=== PATIENT | female | born 1960 | race African-American/Black ===

== ENCOUNTER → 2016-11-28 | Outpatient (CLI) | payer MEDICARE, OTHER ==
--- NOTE | 2016-11-30 08:29 | MM ---
Reason for exam: screening (asymptomatic). Last mammogram was performed 1 year and 1 month ago. History: Patient is postmenopausal and had first child at age 46. Family history of premenopausal breast cancer in mother at age 40. Physical Findings: A clinical breast exam by your physician is recommended on an annual basis and results should be correlated with mammographic findings. MG 3D Screening Mammo W/Cad Bilateral CC and MLO view(s) were taken. XCCL view(s) were taken of the right breast. Prior study comparison: November 02, 2015, bilateral MG 3d screening mammo w/cad. July 16, 2014, bilateral MG screening mammo w CAD. July 15, 2013, bilateral digital screening mammo w/CAD. There are scattered fibroglandular densities. No significant changes when compared with prior studies. ASSESSMENT: Negative, BI-RAD 1 RECOMMENDATION: Routine screening mammogram of both breasts in 1 year.
== END | disposition home or self-care (01) ==
LOC: RADMAMWWP 16:02
PROVIDERS: ATTEND Family Medicine
DX: Z12.31 Encounter for screening mammogram for malignant neoplasm of breast (principal)
CPT/HCPCS: 77063; G0202

== ENCOUNTER → 2016-12-17 | Outpatient (CLI) | payer MEDICARE, OTHER ==
[2016-12-17 11:13] LABS: Cholesterol 179 mg/dL (<200); HDL Cholesterol 65 mg/dL (40-60); Triglycerides 79 mg/dL (<150)
== END | disposition home or self-care (01) ==
LOC: LABWHC1 09:53
PROVIDERS: ATTEND Psychiatry & Neurology Psychiatry
DX: Z51.81 Encounter for therapeutic drug level monitoring (principal); Z79.899 Other long term (current) drug therapy
CPT/HCPCS: 36415; 80061

== ENCOUNTER → 2017-01-07 | Outpatient (CLI) | payer MEDICARE, OTHER ==
[2017-01-07 13:59] LABS: Basophils % (A) 1 %; CH 28.3; CHCM 32.6; Eosinophils # (A) 0.2 k/uL (0-0.7); Eosinophils % (A) 3 %; HCT 39.1 % (34.0-46.0); HDW 2.31; HGB 12.6 gm/dL (11.4-16.0); Luc # (Auto) 0.16; Luc % (Auto) 2; Lymphocytes # (A) 1.8 k/uL (1.0-4.8); Lymphocytes % (A) 24 %; MCH 28.2 pg (25.0-35.0); MCHC 32.3 g/dL (31.0-37.0); MCV 87.1 fL (80.0-100.0); Mean Platelet Volume 7.7; Monocytes # (A) 0.5 k/uL (0-1.0); Monocytes % (A) 7 %; Neutrophils # (A) 4.8 k/uL (1.3-7.7); Neutrophils % (A) 64 %; RBC 4.49 m/uL (3.80-5.40); WBC 7.5 k/uL (3.8-10.6); WBC (Perox) 7.97
[2017-01-07 14:21] LABS: Hemoglobin A1C 7.8 % (4.2-6.1)
[2017-01-07 14:30] LABS: ALT 37 U/L (9-52); AST 23 U/L (14-36); Alkaline Phosphatase 100 U/L (38-126); Anion Gap 11 mmol/L; Blood Urea Nitrogen 14 mg/dL (7-17); C Reactive Protein 7.3 mg/L (<10.0); Calcium 10.1 mg/dL (8.4-10.2); Carbon Dioxide 28 mmol/L (22-30); Chloride 103 mmol/L (98-107); Glucose 206 mg/dL (74-99); Non-African American GFR(MDRD) >60 (>60 ml/min/1.73 sqM); Potassium 4.4 mmol/L (3.5-5.1); Sodium 142 mmol/L (137-145); Total Bilirubin 0.4 mg/dL (0.2-1.3); Total Protein 6.6 g/dL (6.3-8.2)
[2017-01-07 14:34] LABS: Prealbumin 28 mg/dL (18-36)
[2017-01-07 15:27] LABS: Erythrocyte Sedimentation Rate 8 mm/hr (0-20)
== END ==
LOC: LABWHC1 12:28
PROVIDERS: ATTEND Internal Medicine Infectious Disease
DX: E11.621 Type 2 diabetes mellitus with foot ulcer (principal); L97.509 Non-pressure chronic ulcer of other part of unspecified foot with unspecified severity
CPT/HCPCS: 36415; 80053; 83036; 84134; 85025; 85652; 86140

== ENCOUNTER → 2017-03-04 | Outpatient (CLI) | payer MEDICARE, OTHER ==
[2017-03-04 14:17] VITALS: TEMP 97.3; BMI 35.9
[2017-03-04 14:46] LABS: EKG EKG PERFORMED
--- NOTE | 2017-03-04 14:48 | P.HPBAR ---
Bariatric H&P - History & Physicial H&P Date: 03/04/17 History & Physicial: Visit/CC: sleeve consult Patient initial contact: Initial weight: 113.534 kg Initial weight in pounds: 250.30 Height: 5 ft 10 in Initial BMI: 35.9 Last weight: Current weight: 113.534 kg Current weight in pounds: 250.30 Current BMI: 35.9 [place] body weight (based on NIH guidelines): 68.039 kg Excess body weight loss: 0.0% The patient is a 56 year-old F who presents for Bariatric Assessment. This is a 56-year-old female who presents today for bariatric consultation. Patient wishes to undergo sleeve gastrectomy. Patient has several comorbidities and is seeing Dr. Bradley for this. The patient states that she has had long-term problems obesity. Review of Systems Constitutional: Reports as per HPI Past Medical History Past Medical History: Diabetes Mellitus, Skin Disorder Additional Past Medical History / Comment(s): wound lt great toe, and rt arm near elbow History of Any Multi-Drug Resistant Organisms: VRE Year Discovered:: 05/30/16 MDRO Source:: left toe Past Surgical History: No Surgical Hx Reported Additional Past Surgical History / Comment(s): lt foot surgery Past Anesthesia/Blood Transfusion Reactions: No Reported Reaction Past Psychological History: Bipolar, Schizophrenia Smoking Status: Never smoker Past Alcohol Use History: None Reported Past Drug Use History: None Reported - Past Family History Mother Family Medical History: Cancer Additional Family Medical History / Comment(s): breast Sister(s) Family Medical History: Cancer Additional Family Medical History / Comment(s): kidney and liver Surgical - Exam Vital Signs Temp 97.3 F L 03/04/17 14:02 - General well developed, well nourished, no distress - Eyes PERRL - ENT normal pinna - Neck no masses - Respiratory normal expansion - Cardiovascular Rhythm: regular - Abdomen Abdomen: soft, non tender Bariatric Assessment & Plan Plan: Morbid obesity with BMI 36. The patient wished undergo sleeve gastrectomy. I went over the risks and benefits of procedure and discussed with the risk of possible staple line disruption bleeding or perforation. The patient will undergo EGD. She is scheduled see Dr. Bradley for a letter of medical necessity. She will arrange her psychologic consult. Bariatric Checklist Checklist: Plan: Checklist: EGD: 1. Hiatal hernia: 2. H. Pylori: HgbA1c: Vitamin D: Smoking: Never smoker Primary care physician referral: disha Psychiatry clearance: Cardiology clearance: Sleep study: Diet journal: VTE risk score: VTE risk level: Rehab needs at discharge:
[2017-03-04 15:17] LABS: CH 27.7; CHCM 32.5; HCT 38.4 % (34.0-46.0); HDW 2.23; HGB 12.7 gm/dL (11.4-16.0); MCH 28.3 pg (25.0-35.0); MCHC 33.1 g/dL (31.0-37.0); MCV 85.4 fL (80.0-100.0); Mean Platelet Volume 7.1; RDW 12.7 % (11.5-15.5); WBC 7.1 k/uL (3.8-10.6)
[2017-03-04 15:23] LABS: ALT 35 U/L (9-52); AST 21 U/L (14-36); Alkaline Phosphatase 100 U/L (38-126); Anion Gap 8 mmol/L; Blood Urea Nitrogen 17 mg/dL (7-17); Carbon Dioxide 31 mmol/L (22-30); Chloride 104 mmol/L (98-107); Glucose 87 mg/dL (74-99); Non-African American GFR(MDRD) >60 (>60 ml/min/1.73 sqM); Potassium 4.4 mmol/L (3.5-5.1); Sodium 143 mmol/L (137-145); Total Bilirubin 0.6 mg/dL (0.2-1.3); Total Protein 6.4 g/dL (6.3-8.2)
[2017-03-04 18:27] VITALS: BP 121/71; PULSE 72; RESP 14
[2017-03-04 22:25] LABS: Hemoglobin A1C 7.7 % (4.2-6.1)
== END | disposition home or self-care (01) ==
LOC: BARWHC3 12:56
PROVIDERS: ATTEND Surgery
DX: Z48.815 Encounter for surgical aftercare following surgery on the digestive system (principal); E66.01 Morbid (severe) obesity due to excess calories; Z68.36 Body mass index [BMI] 36.0-36.9, adult; Z98.84 Bariatric surgery status
CPT/HCPCS: 84425; 80053; 83036; 82746; 85027; 82306; 93005; G0463; 99201

== ENCOUNTER → 2017-03-07 | Outpatient (CLI) | payer MEDICARE, OTHER ==
--- NOTE | 2017-03-08 06:56 | MR ---
EXAMINATION TYPE: MR foot LT wo/w con DATE OF EXAM: 03/07/2017 6:00 PM COMPARISON: CT left foot June 06, 2016. HISTORY: Non healing wound x 3 months left foot plantar mid hind foot CONTRAST: Standard multiplanar, multisequence MRI departmental protocol utilizing 20 mL intravenous MultiHance gadolinium contrast. FINDINGS: There is pes planus deformity. There is marked artifact hindfoot and midfoot from extensive metallic hardware for desired arthrodesis, this causes adjacent streak artifact making evaluation wong boptimal. There is loss of normal subcutaneous fat in the hindfoot inferior to the mid calcaneus seen best on s agittal image 12 where there is heterogeneous increased T2 signal and postcontrast enhancement suspic ious for focal cellulitis at this level. Fat saturation images are suboptimal due to artifact from me tallic hardware. There is no convincing evidence of abnormal bone marrow signal or edema at this leve l. No abnormal osseous enhancement is present. There is marked ankylosis with bone reformation and joint space loss throughout the hindfoot and mid foot structures. Some flexion in the toes is present. No worrisome focal fluid collection or abscess is seen. IMPRESSION: Suboptimal study without convincing MRI evidence for acute osteomyelitis. Skin changes suggesting act blayne cellulitis noted.
== END | disposition home or self-care (01) ==
LOC: RADMRIMAIN 16:12
PROVIDERS: ATTEND Internal Medicine Infectious Disease
DX: M86.172 Other acute osteomyelitis, left ankle and foot (principal)
CPT/HCPCS: 73720; A9577

== ENCOUNTER 2017-03-26 07:12 | Day surgery (SDC) | payer MEDICARE, OTHER ==
[2017-03-21 13:47] VITALS: BMI 35.9
--- NOTE | 2017-03-25 15:27 | P.GSHP ---
History of Present Illness H&P Date: 03/26/17 Chief Complaint: GERD This a 56-year-old female referred from Dr. Bradley. Patient presents today for EGD. She's had issues with GERD. - Constitutional Constitutional: Reports as per HPI Past Medical History Past Medical History: Diabetes Mellitus, Skin Disorder Additional Past Medical History / Comment(s): wound lt great toe, and rt arm near elbow History of Any Multi-Drug Resistant Organisms: VRE Date of last positivie culture/infection: 05/30/16 MDRO Source:: left toe Past Surgical History: No Surgical Hx Reported Additional Past Surgical History / Comment(s): lt foot surgery Past Anesthesia/Blood Transfusion Reactions: No Reported Reaction Past Psychological History: Bipolar, Schizophrenia Smoking Status: Never smoker Past Alcohol Use History: None Reported Past Drug Use History: None Reported - Past Family History Mother Family Medical History: Cancer Additional Family Medical History / Comment(s): breast Sister(s) Family Medical History: Cancer Additional Family Medical History / Comment(s): kidney and liver Medications and Allergies Home Medications Medication Instructions Recorded Confirmed Type ARIPiprazole [ARIPiprazole] 30 mg PO DAILY 04/10/16 03/25/17 History Albuterol Sulfate [Proair Hfa] 2 puff INHALATION RT-Q6H PRN 04/10/16 03/25/17 History Budesonide-Formot 160-4.5 Mcg 2 puff INHALATION RT-BID 04/10/16 03/25/17 History [Symbicort 160-4.5 Mcg Inhaler] Cholecalciferol [Vitamin D3] 5,000 unit PO DAILY 04/10/16 03/25/17 History Diphenoxylate HCl/Atropine 1 tab PO QID PRN 04/10/16 03/25/17 History [Lomotil] Gabapentin [Gabapentin] 600 mg PO TID 04/10/16 03/25/17 History Hydrocodone/Acetaminophen 1 tab PO Q6H PRN 04/10/16 03/25/17 History [Hydrocodon-Acetaminophen 5-325] Insulin Glargine,Hum.rec.anlog 26 unit SQ HS 04/10/16 03/25/17 History [Lantus Solostar] Losartan Potassium [Losartan 25 mg PO DAILY 04/10/16 03/25/17 History Potassium] Orphenadrine [Norflex] 100 mg PO BID 04/10/16 03/25/17 History Perphenazine [Perphenazine] 2 mg PO HS 04/10/16 03/25/17 History buPROPion HCL [Bupropion HCl Sr] 200 mg PO BID 04/10/16 03/25/17 History lamoTRIgine [lamoTRIgine] 150 mg PO BID 04/10/16 03/25/17 History INSULIN LISPRO (HumaLOG) [HumaLOG] 12 units SQ AC-TID 01/07/17 03/25/17 History Pregabalin [Lyrica] 100 mg PO BID 02/11/17 03/25/17 History Allergies Allergy/AdvReac Type Severity Reaction Status Date / Time No Known Allergies Allergy Verified 03/25/17 10:55 Surgical - Exam - General well developed, no distress - Eyes PERRL, normal ocular movement, no icteric - ENT normal pinna - Neck no masses - Respiratory normal expansion - Cardiovascular Rhythm: regular - Abdomen Abdomen: soft, non tender Assessment and Plan Plan: GERD. We'll perform EGD.
[~2017-03-26 07:12] MED LIST: DEXAMETHASONE SOD PHOSPHATE 10 MG/ML 1 ML VIAL IV ONE; HYDROmorphone 1 MG/ML 1 ML SYRINGE IVP PRN; LACTATED RINGERS 1,000 ML IV SCH; ONDANSETRON 4 MG/2 ML VIAL IVP ONE
[2017-03-26] MEDS ORDERED: LACTATED RINGERS 1,000 ML IV ONE (07:24)
[2017-03-26 07:31] VITALS: TEMP 98.6
[2017-03-26 07:42] LABS: Glucose,Whole Blood 200 mg/dL (75-99)
[2017-03-26] MEDS ORDERED: LIDOCAINE 1% INJ 10MG/ML (20 ML MDV) ONE (07:45)
[2017-03-26] MEDS ORDERED: PROPOFOL 10 MG/ML 20 ML VIAL IV ONE (07:45)
--- NOTE | 2017-03-26 07:56 | P.OP ---
Date of Procedure: 03/26/17 Preoperative Diagnosis: GERD Postoperative Diagnosis: Antral gastritis Small hiatal hernia Mild esophagitis Procedure(s) Performed: EGD Implants: Anesthesia: MAC Surgeon: Xavier Chan Pathology: other (Antrum, esophagus) Condition: stable Disposition: PACU Indications for Procedure: Operative Findings: Description of Procedure: The patient's placed on the endoscopy table in the lateral position. She received IV sedation. The gastroscope some placed oropharynx and passed into the esophagus and into the stomach. Scope was then placed through the pylorus. First and second portion of the duodenum appeared normal. Scope was then brought back the antrum and this appeared mildly inflamed. A biopsies was performed. The scope was unretroflexed and remainder of the stomach appeared normal. There was a small hiatal hernia. The GE junction was at 40 cm. The distal esophagus appeared mildly inflamed a biopsies performed. The proximal esophagus. Normal. Scope was withdrawn for patient.
[2017-03-26 09:17] VITALS: RESP 18
[2017-03-26 09:20] VITALS: BP 126/74; PULSE 80
== END 2017-03-26 09:15 | disposition home or self-care (01) ==
LOC: ORWHC2ENDO 07:12
PROVIDERS: ATTEND Surgery
DX: K29.50 Unspecified chronic gastritis without bleeding (principal); K44.9 Diaphragmatic hernia without obstruction or gangrene; J45.909 Unspecified asthma, uncomplicated; E11.9 Type 2 diabetes mellitus without complications; Z79.4 Long term (current) use of insulin; F31.9 Bipolar disorder, unspecified; F20.9 Schizophrenia, unspecified; E66.9 Obesity, unspecified; Z68.35 Body mass index [BMI] 35.0-35.9, adult; Z85.3 Personal history of malignant neoplasm of breast; Z79.51 Long term (current) use of inhaled steroids; Z79.899 Other long term (current) drug therapy
CPT/HCPCS: 88305; 88342; 43239; J2001; J2704

== ENCOUNTER → 2017-04-01 | Outpatient (CLI) | payer MEDICARE, OTHER ==
[2017-04-01 14:59] VITALS: BP 116/72; PULSE 82; RESP 14; TEMP 97.6; BMI 35.6
--- NOTE | 2017-04-01 16:24 | P.HPBAR ---
Bariatric H&P - History & Physicial H&P Date: 04/01/17 History & Physicial: Visit/CC: sleeve prospective Patient initial contact: Initial weight: 113.534 kg Initial weight in pounds: 250.30 Height: 5 ft 10 in Initial BMI: 35.9 Last weight: Current weight: 112.627 kg Current weight in pounds: 248.30 Current BMI: 35.6 [place] body weight (based on NIH guidelines): 68.039 kg Excess body weight loss: 1.9% The patient is a 56 year-old F who presents for Bariatric Assessment. Patient presents today for presurgical consultation. She underwent recent EGD. Patient 's found have evidence of a small hiatal hernia with some mild esophagitis. Patient still is pending to have her psychiatric evaluation done. We are still awaiting her R medical necessity from Dr. Bradley. Past Medical History Past Medical History: Asthma, Diabetes Mellitus, Skin Disorder Additional Past Medical History / Comment(s): wound lt great toe, and rt arm near elbow History of Any Multi-Drug Resistant Organisms: VRE Year Discovered:: 05/30/16 MDRO Source:: left toe Past Surgical History: No Surgical Hx Reported Additional Past Surgical History / Comment(s): lt foot surgery Past Anesthesia/Blood Transfusion Reactions: No Reported Reaction Past Psychological History: Bipolar, Schizophrenia Smoking Status: Never smoker Past Alcohol Use History: None Reported Past Drug Use History: None Reported - Past Family History Mother Family Medical History: Cancer Additional Family Medical History / Comment(s): breast Sister(s) Family Medical History: Cancer Additional Family Medical History / Comment(s): kidney and liver Surgical - Exam Vital Signs Temp Pulse Resp BP 97.6 F 82 14 116/72 04/01/17 14:55 04/01/17 14:55 04/01/17 14:55 04/01/17 14:55 - General well developed, no distress - Eyes PERRL - ENT normal pinna - Neck no masses - Respiratory normal expansion - Cardiovascular Rhythm: regular - Abdomen Abdomen: soft, non tender, tender Bariatric Assessment & Plan Plan: A lengthy discussion with patient regarding sleeve gastrectomy. Over the risks and benefits of procedure again. I discussed with her the risk of possible gastric staple line disruption. Patient will follow-up in one month. She'll be off pressure surgery once her paperwork is completed. Bariatric Checklist Checklist: Plan: Checklist: EGD: 1. Hiatal hernia: 2. H. Pylori: HgbA1c: Vitamin D: Smoking: Never smoker Primary care physician referral: disha Psychiatry clearance: Cardiology clearance: Sleep study: Diet journal: VTE risk score: VTE risk level: Rehab needs at discharge:
== END | disposition home or self-care (01) ==
LOC: BARWHC3 14:43
PROVIDERS: ATTEND Surgery
DX: Z01.818 Encounter for other preprocedural examination (principal); E11.9 Type 2 diabetes mellitus without complications
CPT/HCPCS: 99211

== ENCOUNTER → 2017-04-18 | Outpatient (CLI) | payer MEDICARE, OTHER ==
--- NOTE | 2017-04-18 19:16 | CONS ---
DATE OF CONSULTATION: 04/18/2017 56-year-old lady who has been evaluated in the Sleep Center for significant excessive daytime sleepiness. CONSULTATION/NEW PATIENT EVALUATION HISTORY OF PRESENT ILLNESS/SLEEP-WAKE EVALUATION: SLEEP SCHEDULE: Patient sleep on working days is from around 9:30 or 11:00 p.m. until 4:00 a.m. and on weekends when she is not working from 9:30 to 11:00 p.m. until 7:00 a.m. FALLING ASLEEP: No problem with falling asleep. She has a TV set in bedroom. DURING SLEEP: She wakes up from sleep with heartburn and at night during the day. DURING THE DAY/WAKE STATE: During the day, she feels significantly sleepy, [place] Sleepiness Scale significantly increased to 18. Patient denied snoring. She does not remember dreams during the night or during the day. No history of cataplexy or sleep paralysis. During the day she has problems with, concentration, depression, and anxiety, falling asleep during the day. PAST MEDICAL HISTORY: Positive for diabetes mellitus, asthma, depression, schizophrenia, knee problem, back pain, right arm, arthritis. PAST SURGICAL HISTORY: Left foot surgery. MEDICATIONS: 1. Abilify. 2. ( ) sulfate with ( ). 3. Hydrochloride. 4. Bupropion. 5. Gabapentin. 6. Humalog. 7. Hydrocodone. 8. Lamictal. 9. Lantus. 10. Losartan. 11. Orphenadrine citrate. 12. ( ). 13. Pro-Air. 14. Symbicort. 15. Breo. 16. Vitamin D supplement. SOCIAL HISTORY: Negative for smoking or using alcohol. REVIEW OF SYSTEM: Significant excessive daytime sleepiness. No fevers. No double vision. No recent chest pain. No shortness of breath. No abdominal pain. No bleeding episodes. No blood in urine. No seizure episodes. FAMILY HISTORY: Hypertension, stroke, arthritis, asthma, bronchitis, headaches, acid reflux, diabetes, mental illness. PHYSICAL EXAMINATION: lady without distress. VITAL SIGNS: BP 126/72, HR 70, RR 16. Height 5 feet 9 inches. Weight 245, BMI 36.1. Neck 15 inches in circumference. Temperature 97.7, oxygen saturation at room air 94%. Oropharynx extremely low position of soft palate. Mallampati IV. NECK: Supple. No JVD. Thyroid is not palpable. LUNGS: Clear to percussion and to auscultation. Good air exchange. No wheezing or rhonchi. HEART: S1, S2 regular. No murmurs, gallops or rubs. ABDOMEN: Obese. Soft and nontender. Bowel sounds are present. No organomegaly appreciated. EXTREMITIES: No clubbing or cyanosis. Swelling left ankle. WEB PRESSMAN: Awake, alert, and oriented x3. Cranial nerves 2 to 7 intact. There is no fasciculation or atrophy noted. No focal deficits observed. IMPRESSION: 1. Awakenings from sleep, extremely low position of soft palate, sleepiness, heartburn during sleep obstructive sleep apnea-hypopnea syndrome. 2. Obesity, body mass index of 36.2. 3. Patient presented with symptoms of significant excessive daytime sleepiness. [place] Sleepiness Scale is 18. Differential diagnosis should include hypersomnia. No history of cataplexy hypnogogical hallucinations or sleep paralysis. 4. Diabetes mellitus. 5. Asthma. 6. Depression. 7. Schizophrenia. 8. Knee problems. 9. Back pain. 10. Right arm, arthritis. PLAN: 1. Polysomnography for evaluation of patient's breathing during sleep. 2. CPAP/BiPAP titration if sleep study confirms obstructive sleep apnea-hypopnea syndrome. 3. Preferable position during sleep on the side. 4. No driving if patient feels any sleepiness. Patient is aware of civil and criminal liability for unsafe driving. 5. I will see patient for follow-up visit to explain results of the testing and following plan. 6. Multiple sleep latency test if sleep study will be negative for obstructive sleep apnea/hypopnea syndrome for objective evaluation patient's symptoms for significant excessive daytime sleepiness. Thank you very much for referring this patient for consultation. Sincerely, Jef Pichardo MD, PhD, FAASM. Diplomat of [place] [employer], Sleep Medicine Board by [employer] [facility] [place]
== END | disposition home or self-care (01) ==
LOC: SLEEP 14:15
PROVIDERS: ATTEND Internal Medicine
DX: G47.33 Obstructive sleep apnea (adult) (pediatric) (principal); E66.9 Obesity, unspecified; E11.9 Type 2 diabetes mellitus without complications; J45.909 Unspecified asthma, uncomplicated; F32.9 Major depressive disorder, single episode, unspecified; F20.9 Schizophrenia, unspecified; M54.9 Dorsalgia, unspecified; M13.88 Other specified arthritis, other site; Z68.36 Body mass index [BMI] 36.0-36.9, adult; Z79.899 Other long term (current) drug therapy
CPT/HCPCS: 99211

== ENCOUNTER → 2017-06-27 | Outpatient (CLI) | payer MEDICARE, OTHER ==
[2017-06-27 10:45] LABS: ALT 46 U/L (9-52); AST 27 U/L (14-36)
== END | disposition home or self-care (01) ==
LOC: LABWHC1 09:25
PROVIDERS: ATTEND Podiatrist Foot & Ankle Surgery
DX: K74.60 Unspecified cirrhosis of liver (principal)
CPT/HCPCS: 36415; 84450; 84460

== ENCOUNTER → 2017-07-25 | Outpatient (CLI) | payer MEDICARE, OTHER ==
--- NOTE | 2017-07-25 14:59 | PN ---
PROGRESS NOTE DATE OF SERVICE: 07/25/2017 A 56-year-old lady who has been followed in Sleep Center for treatment of obstructive sleep apnea-hypopnea syndrome. Patient had diagnostic sleep study and CPAP titration. During diagnostic sleep study, it was documented that she has 23.2 times per hour breathing problems with oxygen desaturation to 83.8%. During titration, her respiration was under control with a pressure of 12 cm of water. The patient started on treatment with CPAP and today she came for followup visit. I discussed results of the test with her. She brought her CPAP unit. CPAP pressure is 12 cm of water. I checked CPAP unit. Ramp is 20 minutes. Patient used equipment /30 nights and nights for more than 4 hours. Significant leak is documented by the reading from the machine is 67 L/minute, and this high AHI is 15 on the machine. [place] Sleepiness Scale today is 13. She feels significant sleepiness since she did not use her machine for the last night and she did not sleep last night at all according to her. MEDICATIONS: Abilify, Lamictal, , Wellbutrin, Atropine, sulfate, bupropion, gabapentin, Humalog, losartan, Lantus, Perphenazine, ProAir, Symbicort. PHYSICAL EXAM: Patient in no distress. BP in the range of 80/48, HR 70, RR 16, weight 233, temp 98.0, oxygen saturation from room air 95%. OROPHARYNX: Extremely low position of soft palate. She had bracelets on the left foot. IMPRESSION: 1. Obstructive sleep apnea-hypopnea syndrome, significant leak by the reading from the machine and patient's machine still has high apnea-hypopnea index. 2. Obesity. 3. Diabetes mellitus. 4. Asthma. 5. Depression. 6. History of schizophrenia.. 7. Knee problems. 8. Back pain. 9. Right arm arthritis. PLAN: 1. We will check to be sure that patient using correct chin-strap. 2. Will check the size of patient's mass to be sure that it is right size. 3. Continue to use CPAP equipment every night for the whole night. 4. Losing weight. 5. Sleep hygiene with regular time in bed for at least 8 hours[address] 6[address] Patient does not drive at the present time. Thank you very much for allowing me to participate in the management of your patient. Sincerely, Jef Pichardo MD, PhD, FAASM Diplomat of [employer] Sleep Medicine Board by [employer] Art Teacher [facility] [place] / SHANIA: [phone] /
== END | disposition home or self-care (01) ==
LOC: SLEEP 11:54
PROVIDERS: ATTEND Internal Medicine
DX: G47.33 Obstructive sleep apnea (adult) (pediatric) (principal); E66.9 Obesity, unspecified; E11.9 Type 2 diabetes mellitus without complications; J45.909 Unspecified asthma, uncomplicated; M54.9 Dorsalgia, unspecified

== ENCOUNTER → 2017-08-08 | Outpatient (CLI) | payer MEDICARE, OTHER ==
[2017-08-08 16:23] LABS: ALT 40 U/L (9-52); AST 27 U/L (14-36)
== END | disposition home or self-care (01) ==
LOC: LABWHC1 15:39
PROVIDERS: ATTEND Podiatrist Foot & Ankle Surgery
DX: K74.60 Unspecified cirrhosis of liver (principal)
CPT/HCPCS: 36415; 84450; 84460

== ENCOUNTER → 2017-10-31 | Outpatient (CLI) | payer MEDICARE, OTHER ==
--- NOTE | 2017-10-31 14:03 | PN ---
PROGRESS NOTE DATE OF SERVICE: 10/31/2017 A 57-year-old lady who has been followed in the Sleep Center for treatment of obstructive sleep apnea-hypopnea syndrome. Patient was started on treatment with CPAP and today she came for followup visit. I checked patient's CPAP unit, but it showed that she was not able to use it for at least 1 month. For the time frame of 3 months she used it 7 days, but less than 4 hours. Average usage 1.3 hours and with this usage she has significant leak. Patient explained that she has difficulties to put mask on and I checked her full-face mask and it was not connected properly. The head gear connected vice versa so I changed this connection for correct position. [place] Sleepiness Scale today is 6. MEDICATIONS: Abilify, Lamictal, Wellbutrin, Bupropion, gabapentin, Humalog, losartan, Lantus, Symbicort, ProAir. PHYSICAL EXAM: Patient in no distress. BP 131/82, HR 70, RR 16, weight 224, temp 96.7, oxygen saturation at room air 100%. OROPHARYNX: Extremely low position of soft palate. Neck Supple, no JVD. Thyroid is not palpable. LUNGS Clear to percussion and to auscultation. Good air exchange. No wheezing or rhonchi. HEART S1, S2 regular. No murmurs, gallops, or rubs. ABDOMEN Soft and nontender. Bowel sounds are present. No organomegaly appreciated. EXTREMITIES No clubbing or cyanosis. 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 Cranial nerves 2 to 7 intact. There is no fasciculation or atrophy. noted. No focal deficits observed. IMPRESSION: 1. Obstructive sleep apnea-hypopnea syndrome. Patient has difficulties to use CPAP equipment secondary to mask seating. She explained that it is difficult for her to put mask on, but connection of mask to head gear was not correct. 2. Diabetes mellitus. 3. Asthma. 4. Depression. 5. History of schizophrenia. 6. Knee problems. 7. Back problems. 8. Right arm arthritis. 9. Mild obesity. PLAN: 1. I adjusted head gear correctly to the mask. Patient will try to use her machine every night for the whole night. 2. Sleep hygiene with regular time in bed for at least 8 hours. 3. No driving if feeling any sleepiness. Thank you very much for allowing me to participate in the management of your patient. Sincerely, Jef Pichardo MD, PhD, FAASM Diplomat of [employer] Medicine [employer] Photographer [facility] [place] / SHANIA: [phone] /
== END ==
LOC: CANPRECLI → SLEEP 13:08
PROVIDERS: ATTEND Internal Medicine
DX: Z53.9 Procedure and treatment not carried out, unspecified reason (principal)

== ENCOUNTER → 2017-11-12 | Outpatient (CLI) | payer MEDICARE, OTHER ==
--- NOTE | 2017-11-12 15:39 | US ---
EXAMINATION TYPE: US thyroid st tissue head/neck DATE OF EXAM: 11/12/2017 COMPARISON: NONE CLINICAL HISTORY: E04.1 Thyroid nodule. GLAND SIZE: Right Lobe: 5.2 x 2.3 x 1.7 cm Overall Parenchyma: slightly heterogenous Left Lobe: 4.7 x 2.1 x 1.9 cm Overall Parenchyma: slightly heterogenous Isthmus Thickness: 0.6 cm NODULES RIGHT: # of nodules measured on right: 1 1. 0.5 X 0.4 x 0.3 cm hypoechoic solid nodule at the mid pole with well-defined margins. This nodu le is taller than wide and shows intranodular vascularity. Prior size: 0.6 x 0.3 x 0.5 cm LEFT: # of nodules measured on left: 2 1. 0.8 X 0.7 x 0.5 cm hypoechoic solid nodule at the mid pole with well-defined margins. This nodu le is taller than wide and shows intranodular vascularity. Prior size: 0.7 x 0.5 x 0.7 cm 2. 0.5 X 0.4 x 0.2 cm hypoechoic mixed nodule at the lower pole with irregular margins. This nodule is taller than wide and shows intranodular vascularity. Prior size: 0.4 x 0.2 x 0.4 cm 3. Previous third nodule not seen today during exam ISTHMUS: # of nodules measured in the isthmus: 1 1. 1.0 X 1.0 x 0.6 cm hypoechoic mixed nodule with well-defined margins. This nodule is taller malinda n wide and shows intranodular vascularity. Prior size: 1.0 x 0.5 x 1.0 cm Bilateral neck scanned, no evidence of lymphadenopathy. Bilateral lobes appear enlarged IMPRESSION: Subcentimeter left thyroid nodules and 1 cm isthmic thyroid nodule within a mildly enlarged thyroid g land do not meet size criteria for fine needle aspiration and therefore surveillance is recommended.
== END | disposition home or self-care (01) ==
LOC: RADUSWWP 14:37
PROVIDERS: ATTEND Otolaryngology
DX: E04.2 Nontoxic multinodular goiter (principal)
CPT/HCPCS: 76536

== ENCOUNTER → 2017-11-18 | Outpatient (CLI) | payer MEDICARE, OTHER ==
--- NOTE | 2017-11-19 10:30 | MM ---
Reason for exam: screening (asymptomatic). Last mammogram was performed 1 year ago. History: Patient is postmenopausal and had first child at age 46. Family history of premenopausal breast cancer in mother at age 40. Physical Findings: A clinical breast exam by your physician is recommended on an annual basis and results should be correlated with mammographic findings. MG 3D Screening Mammo W/Cad Bilateral CC and MLO view(s) were taken. Prior study comparison: November 28, 2016, bilateral MG 3d screening mammo w/cad. November 02, 2015, bilateral MG 3d screening mammo w/cad. There are scattered fibroglandular densities. Benign calcifications in the right breast. No significant changes when compared with prior studies. ASSESSMENT: Benign, BI-RAD 2 RECOMMENDATION: Routine screening mammogram of both breasts in 1 year.
== END | disposition home or self-care (01) ==
LOC: RADMAMWWP 11:02
PROVIDERS: ATTEND Family Medicine
DX: Z12.31 Encounter for screening mammogram for malignant neoplasm of breast (principal)
CPT/HCPCS: 77063; 77067

== ENCOUNTER → 2018-11-25 | Outpatient (CLI) | payer MEDICARE, OTHER | END | disposition home or self-care (01) | LOC: LABWHC1 14:18 | PROVIDERS: ATTEND Orthopaedic Surgery | DX: Z01.812 Encounter for preprocedural laboratory examination (principal) | CPT/HCPCS: 87070 ==

== ENCOUNTER → 2018-11-27 | Outpatient (CLI) | payer MEDICARE, OTHER ==
--- NOTE | 2018-11-29 14:38 | MM ---
Reason for exam: screening (asymptomatic). Last mammogram was performed 1 year ago. History: Patient is postmenopausal and had first child at age 46. Family history of premenopausal breast cancer in mother at age 40. MG 3D Screening Mammo W/Cad Bilateral CC and MLO view(s) were taken. Prior study comparison: November 18, 2017, bilateral MG 3d screening mammo w/cad. November 28, 2016, bilateral MG 3d screening mammo w/cad. The breast tissue is heterogeneously dense. This may lower the sensitivity of mammography. No discrete abnormality. No significant changes when compared with prior studies. ASSESSMENT: Negative, BI-RAD 1 RECOMMENDATION: Routine screening mammogram of both breasts in 1 year.
== END | disposition home or self-care (01) ==
LOC: RADMAMWWP 11:29
PROVIDERS: ATTEND Family Medicine
DX: Z12.31 Encounter for screening mammogram for malignant neoplasm of breast (principal)
CPT/HCPCS: 77063; 77067

== ENCOUNTER 2019-08-03 17:11 | Emergency (ER) | payer MEDICARE, OTHER ==
[2019-08-03 17:47] VITALS: TEMP 98.2
--- NOTE | 2019-08-03 20:03 | XR ---
EXAMINATION TYPE: XR foot complete LT DATE OF EXAM: 08/03/2019 COMPARISON: NONE HISTORY: Abscess TECHNIQUE: 3 views FINDINGS: There are numerous plates and screws fusing the mid foot on the medial aspect. There is fus ion of the subtalar joint. I see no fracture nor dislocation. There is pes planus deformity. IMPRESSION: Extensive fusion surgery. No evidence of osteomyelitis.
--- NOTE | 2019-08-03 20:15 | ED ---
General Adult HPI - General Chief complaint: Skin/Abscess/Foreign Body Stated complaint: diabetic/foot problem Time Seen by Provider: 08/03/19 19:18 Source: patient, RN notes reviewed Mode of arrival: ambulatory Limitations: no limitations - History of Present Illness Initial comments: 58-year-old female presents to the emergency department for a chief complaint of left foot problem. Patient states she noticed a green area on the bottom of the left foot last night. Patient states she has neuropathy so does not have any pain in this area. Patient states she had a fusion surgery several years ago for lateral deviation of the left foot. States she has not had any complaints of that sense. Patient does not go to wound care for any reason but does have a history of diabetes.Patient has no other complaints at this time including shortness of breath, chest pain, abdominal pain, nausea or vomiting, headache, or visual changes. - Related Data Home Medications Medication Instructions Recorded Confirmed Albuterol Sulfate [Proair Hfa] 2 puff INHALATION RT-Q6H PRN 04/10/16 08/03/19 Pregabalin [Lyrica] 100 mg PO BID 02/11/17 08/03/19 buPROPion HCL [Wellbutrin XL] 300 mg PO QAM 11/26/18 08/03/19 metFORMIN HCL [Glucophage] 500 mg PO BID-W/MEALS 11/26/18 08/03/19 Dulaglutide [Trulicity] 1.5 mg SQ ZAMBRANO 11/27/18 08/03/19 Insulin Glargine [Lantus] 6 unit SQ W/SUPPER 11/27/18 08/03/19 ARIPiprazole [Abilify] 30 mg PO HS 08/03/19 08/03/19 Hydrocodone/Acetaminophen [[place] 1 tab PO QID 08/03/19 08/03/19 5-325] Insulin Glargine [Lantus] 8 unit SQ HS 08/03/19 08/03/19 buPROPion HCL [Wellbutrin XL] 150 mg PO W/LUNCH 08/03/19 08/03/19 lamoTRIgine [LaMICtal] 150 mg PO BID 08/03/19 08/03/19 Previous Rx's Medication Instructions Recorded Cephalexin [Keflex] 500 mg PO Q6HR 10 Days #40 cap 08/03/19 Sulfamethox-Tmp 800-160Mg [Bactrim 1 tab PO Q12HR #20 tab 08/03/19 DS 800-160 mg] Allergies Allergy/AdvReac Type Severity Reaction Status Date / Time No Known Allergies Allergy Verified 08/03/19 19:49 Review of Systems ROS Statement: Those systems with pertinent positive or pertinent negative responses have been documented in the HPI. ROS Other: All systems not noted in ROS Statement are negative. Past Medical History Past Medical History: Asthma, Diabetes Mellitus, Skin Disorder Additional Past Medical History / Comment(s): wound lt great toe, and rt arm near elbow History of Any Multi-Drug Resistant Organisms: VRE Date of last positivie culture/infection: 05/30/16 MDRO Source:: left toe Past Surgical History: No Surgical Hx Reported, Orthopedic Surgery Additional Past Surgical History / Comment(s): lt foot surgery Past Anesthesia/Blood Transfusion Reactions: No Reported Reaction Past Psychological History: Bipolar, Schizophrenia Smoking Status: Never smoker Past Alcohol Use History: None Reported Past Drug Use History: None Reported - Past Family History Mother Family Medical History: Cancer Additional Family Medical History / Comment(s): breast Sister(s) Family Medical History: Cancer Additional Family Medical History / Comment(s): kidney and liver General Exam Limitations: no limitations General appearance: alert, in no apparent distress Head exam: Present: atraumatic, normocephalic, normal inspection Eye exam: Present: normal appearance, PERRL, EOMI. Absent: scleral icterus, conjunctival injection, periorbital swelling ENT exam: Present: normal exam, mucous membranes moist Neck exam: Present: normal inspection, full ROM. Absent: tenderness, meningismus, lymphadenopathy Respiratory exam: Present: normal lung sounds bilaterally. Absent: respiratory distress, wheezes, rales, rhonchi, stridor Cardiovascular Exam: Present: regular rate, normal rhythm, normal heart sounds. Absent: systolic murmur, diastolic murmur, rubs, gallop, clicks Extremities exam: Present: full ROM (Full range of motion of all digits in the left foot.), normal capillary refill (cap refill less than, DP pulse 2+ left lower extremity.), other (Patient has fluctuant area noted to left proximal first metatarsal. No erythema. no green areas on skin the patient does have some white discoloration over the abscess.) Course Vital Signs 08/03/19 17:42 Temperature 98.2 F Pulse Rate 93 Respiratory 18 Rate Blood Pressure 122/72 O2 Sat by Pulse 97 Oximetry Procedures - Incision & Drainage Consent Obtained: verbal consent Site: foot I&D Cleaning Method: Chloroprep I&D Drainage Obtained: Blood Medical Decision Making - Medical Decision Making 88-year-old female presents for possible ulcer on the bottom of the left foot. On exam patient does have what appears to be an ulcer versus an abscess. I did do a superficial incision with an 18-gauge needle, no purulent material expelled. X-ray was obtained which shows no evidence of osteomyelitis. There is extensive fusion surgery that was done years ago. Patient likely is a developing ulcer. However will be treated with antibiotics in case there is overlying infection. She will follow-up with her orthopedic doctor as well as given the wound care referral. She'll return if she has any worsening symptoms. Disposition Clinical Impression: Ulcer Disposition: HOME SELF-CARE Condition: Good Instructions (If sedation given, give patient instructions): Diabetic Foot Ulcers (ED) Additional Instructions: Please follow up with orthopedics in one to 2 days. you may also try to follow up with the wound center. Please return to the emergency department if you have any worsening symptoms. Prescriptions: Sulfamethox-Tmp 800-160Mg [Bactrim DS 800-160 mg] 1 tab PO Q12HR #20 tab Cephalexin [Keflex] 500 mg PO Q6HR 10 Days #40 cap Is patient prescribed a controlled substance at d/c from ED?: No Referrals: Fredrick Bradley MD [Primary Care Provider] - 1-2 days [facility] [[facility] - 1-2 days Time of Disposition: 21:30
[2019-08-03] MEDS ORDERED: CEPHALEXIN 500MG STARTER PACK 4 CAP BTL PO STA (21:34)
[2019-08-03 21:51] VITALS: BP 126/71; PULSE 89; RESP 16
== END 2019-08-03 21:51 | disposition home or self-care (01) ==
LOC: EC 17:11
DX: E11.621 Type 2 diabetes mellitus with foot ulcer (principal); L97.529 Non-pressure chronic ulcer of other part of left foot with unspecified severity; E11.40 Type 2 diabetes mellitus with diabetic neuropathy, unspecified; J45.909 Unspecified asthma, uncomplicated; F31.9 Bipolar disorder, unspecified; F20.9 Schizophrenia, unspecified; Z79.51 Long term (current) use of inhaled steroids; Z79.4 Long term (current) use of insulin; Z79.899 Other long term (current) drug therapy; Z98.890 Other specified postprocedural states
CPT/HCPCS: 10060; 99283

== ENCOUNTER → 2019-08-13 | Outpatient (CLI) | payer MEDICARE, OTHER ==
--- NOTE | 2019-08-13 14:53 | US ---
SIDE PERFORMED: LOWER EXTREMITY VENOUS INSUFFICIENCY CLINICAL HISTORY: L89.899 PRESSURE ULCER. Ulcer. SIDE PERFORMED: Bilateral. 1) Color flow is present and patency is documented in the following vessels. No DVT or SVT is noted . EIV Common Femoral Vein Deep Femoral Vein Femoral Vein Popliteal Vein Proximal Calf Veins Greater Saph Vein Upper Small Saph Vein 2) There is no venous reflux noted. IMPRESSION: No superficial or deep venous thrombosis within either lower extremity. No venous reflux seen.
== END | disposition home or self-care (01) ==
LOC: RADUSWWP 12:49
PROVIDERS: ATTEND Family Medicine
DX: E11.610 Type 2 diabetes mellitus with diabetic neuropathic arthropathy (principal); E11.621 Type 2 diabetes mellitus with foot ulcer; L97.509 Non-pressure chronic ulcer of other part of unspecified foot with unspecified severity; L89.899 Pressure ulcer of other site, unspecified stage; I96 Gangrene, not elsewhere classified; Z98.890 Other specified postprocedural states
CPT/HCPCS: 93922; 93970

== ENCOUNTER → 2019-10-23 | Outpatient (CLI) | payer MEDICARE, OTHER ==
--- NOTE | 2019-10-26 09:00 | XR ---
EXAMINATION TYPE: XR lumbar spine 2 or 3V DATE OF EXAM: 10/23/2019 CLINICAL HISTORY: pain TECHNIQUE: Three views of the lumbar spine are submitted. COMPARISON: None. FINDINGS: Grade 1 anterolisthesis L4 and L5 measuring 5 mm. Moderate degenerative narrowing at L3-4 L4-5 and L5 -S1. Lower lumbar facet joint arthropathy. Ventral spondylosis. No compression fractures identified. IMPRESSION: No acute fracture or dislocation is seen in the lumbar spine. ICD 10 NO FRACTURE, INITIAL EVALUATION
== END | disposition home or self-care (01) ==
LOC: RADXRMAIN 16:24
PROVIDERS: ATTEND Family Medicine
DX: M54.5 Low back pain (principal)
CPT/HCPCS: 72100

== ENCOUNTER → 2019-12-22 | Outpatient (CLI) | payer MEDICARE, OTHER ==
--- NOTE | 2019-12-22 10:22 | US ---
EXAMINATION TYPE: US thyroid st tissue head/neck DATE OF EXAM: 12/22/2019 COMPARISON: NONE CLINICAL HISTORY: E04.1 thyroid nodule. GLAND SIZE: Right Lobe: 5.9 x 1.9 x 2.1cm Overall Parenchyma: homogenous Left Lobe: 4.9 x 1.9 x 2.4cm Overall Parenchyma: homogeneous Isthmus Thickness: 1.0 cm NODULES RIGHT: # of nodules measured on right: 1 1. 0.8 X 0.6 x 0.7 cm hypoechoic mixed nodule at the mid pole with well-defined margins. This nodu le is wider than tall and shows no intranodular vascularity. Prior size: 0.5 x 0.4 x 0.3 cm LEFT: # of nodules measured on left: 2 1. 0.6 X 0.4 x 0.7 cm isoechoic solid nodule at the mid pole with well-defined margins. This nodul e is wider than tall and shows intranodular vascularity. Prior size: 0.8 x 0.7 x 0.5 cm 2. 0.4 X 0.3 x 0.4 cm hypoechoic solid nodule at the lower pole with well-defined margins. This nod ule is wider than tall and shows no intranodular vascularity. Prior size: 0.5 x 0.4 x 0.3 cm ISTHMUS: # of nodules measured in the isthmus: 1 1. 1.1 X 0.8 x 1.2 cm isoechoic mixed nodule at the mid pole with well-defined margins. This nodu le is wider than tall and shows no intranodular vascularity. Prior size: 1.0 x 1.0 x 0.6 cm Bilateral neck scanned, no evidence of lymphadenopathy. IMPRESSION: Thyroid glandular enlargement with scattered nodularity as outlined above.
== END | disposition home or self-care (01) ==
LOC: RADUSWWP 09:29
PROVIDERS: ATTEND Otolaryngology
DX: E04.9 Nontoxic goiter, unspecified (principal); E04.2 Nontoxic multinodular goiter
CPT/HCPCS: 76536

== ENCOUNTER → 2020-01-11 | Outpatient (CLI) | payer MEDICARE, OTHER ==
--- NOTE | 2020-01-11 10:54 | MM ---
Reason for exam: screening (asymptomatic). Last mammogram was performed 1 year and 2 months ago. History: Patient is postmenopausal and had first child at age 46. Family history of premenopausal breast cancer in mother at age 40. Physical Findings: A clinical breast exam by your physician is recommended on an annual basis and results should be correlated with mammographic findings. MG 3D Screening Mammo W/Cad Bilateral CC and MLO view(s) were taken. Prior study comparison: November 27, 2018, bilateral MG 3d screening mammo w/cad. November 18, 2017, bilateral MG 3d screening mammo w/cad. There are scattered fibroglandular densities. There is no discrete abnormality. ASSESSMENT: Negative, BI-RAD 1 RECOMMENDATION: Routine screening mammogram of both breasts in 1 year.
== END | disposition home or self-care (01) ==
LOC: RADMAMWWP 07:14
PROVIDERS: ATTEND Family Medicine
DX: Z12.31 Encounter for screening mammogram for malignant neoplasm of breast (principal)
CPT/HCPCS: 77063; 77067

== ENCOUNTER 2020-02-11 08:24 | Day surgery (SDC) | payer MEDICARE, OTHER ==
[2020-02-11 09:42] VITALS: RESP 18; TEMP 98.4
[2020-02-11 11:16] VITALS: BP 118/72; PULSE 78
--- NOTE | 2020-02-12 08:40 | US ---
ULTRASOUND GUIDED FNA THYROID BIOPSY: CLINICAL HISTORY: Thyroid isthmus nodule FINDINGS: The procedure was explained to the patient. The risks, complications, benefits and alternatives were discussed and any questions were answered. Informed consent was obtained. Patient was placed supin e on the ultrasound table and prepped and draped in the usual sterile fashion. Utilizing a 25 gauge needle, five passes were made into the requested isthmus nodule. Patient was stable throughout the procedure. Pathology is pending. All elements of maximal barrier technique were utilized. IMPRESSION: 1. Successful ultrasound guided FNA thyroid biopsy.
== END 2020-02-11 11:05 | disposition home or self-care (01) ==
LOC: RADPROMAIN 08:24
PROVIDERS: ATTEND Otolaryngology
DX: E04.1 Nontoxic single thyroid nodule (principal)
CPT/HCPCS: 10005; 88173; 88305

== ENCOUNTER 2020-09-07 18:03 | Emergency (ER) | payer MEDICARE, OTHER ==
[2020-09-07 18:17] VITALS: TEMP 98.4
--- NOTE | 2020-09-07 20:04 | ED ---
General Adult HPI - General Chief complaint: Recheck/Abnormal Lab/Rx Stated complaint: Weakness Time Seen by Provider: 09/07/20 19:11 Source: patient, EMS, RN notes reviewed, old records reviewed Mode of arrival: EMS Limitations: no limitations - History of Present Illness Initial comments: 59-year-old female patient to ED for evaluation. She reports that she has history of chronic back pain. Patient reports that she feels as if her legs are weaker than usual the last couple of days and she feels tired. She denies any loss of bowel or bladder control or any paresthesias. She reports that she was able to ambulate okay today. She is denying any recent falls. She reports that earlier today she felt a little confused briefly. That has resolved. Denies any chest pain shortness of breath or any other acute complaints. Systemic: Pt denies fatigue, fever/chills, rash. Pt denies weakness, night sweats, weight loss. Neuro: Pt denies headache, visual disturbances, syncope or pre-syncope. HEENT: Pt denies ocular discharge or irritation, otalgia, rhinorrhea, pharyngitis or notable lymphadenopathy. Cardiopulmonary: Pt denies chest pain, SOB, heart palpitations, dyspnea on exertion. Abdominal/GI: Pt denies abdominal pain, n/v/d. : Pt denies dysuria, burning w/ urination, frequency/urgency. Denies new onset urinary or bowel incontinence. MSK: Pt denies myalgia, loss of strength or function in extremities. Neuro: Pt denies paresthesias. - Related Data Home Medications Medication Instructions Recorded Confirmed Albuterol Sulfate [Proair Hfa] 2 puff INHALATION RT-Q6H PRN 04/10/16 09/07/20 Pregabalin [Lyrica] 100 mg PO BID 02/11/17 09/07/20 buPROPion HCL [Wellbutrin XL] 300 mg PO DAILY 11/26/18 09/07/20 Dulaglutide [Trulicity] 1.5 mg SQ ZAMBRANO 11/27/18 09/07/20 ARIPiprazole [Abilify] 30 mg PO HS 08/03/19 09/07/20 Hydrocodone/Acetaminophen [[place] 1 tab PO Q6H PRN 08/03/19 09/07/20 5-325] Insulin Glargine [Lantus] 16 unit SQ HS 08/03/19 09/07/20 buPROPion HCL [Wellbutrin XL] 150 mg PO W/LUNCH 08/03/19 09/07/20 lamoTRIgine [LaMICtal] 150 mg PO BID 08/03/19 09/07/20 Aspirin 325 mg PO BID 02/05/20 09/07/20 Atorvastatin [Lipitor] 40 mg PO HS 02/05/20 09/07/20 Montelukast [Singulair] 10 mg PO HS 02/05/20 09/07/20 Ketoconazole [Ketoconazole 2%] 1 applic TOPICAL BID 09/07/20 09/07/20 SILVER sulfADIAZINE CREAM 1 applic TOPICAL BID 09/07/20 09/07/20 [Silvadene Cream] metFORMIN HCL ER [Glucophage Xr] 500 mg PO PC-SUPPER 09/07/20 09/07/20 Previous Rx's Medication Instructions Recorded Cephalexin [Keflex] 500 mg PO Q12HR 10 Days cap 09/07/20 Allergies Allergy/AdvReac Type Severity Reaction Status Date / Time blackberry Allergy Rash/Hives Verified 09/07/20 20:31 blueberry Allergy Rash/Hives Verified 09/07/20 20:31 raspberry Allergy Rash/Hives Verified 09/07/20 20:31 strawberry Allergy Rash/Hives Verified 09/07/20 20:31 Review of Systems ROS Statement: Those systems with pertinent positive or pertinent negative responses have been documented in the HPI. ROS Other: All systems not noted in ROS Statement are negative. Past Medical History Past Medical History: Asthma, Diabetes Mellitus, Skin Disorder Additional Past Medical History / Comment(s): on atorvastatin but state cholesterol not elevated History of Any Multi-Drug Resistant Organisms: VRE Date of last positivie culture/infection: 05/30/16 MDRO Source:: left toe Past Surgical History: Orthopedic Surgery Additional Past Surgical History / Comment(s): left foot surgery, left knee arthroplasty Past Anesthesia/Blood Transfusion Reactions: No Reported Reaction Additional Past Anesthesia/Blood Transfusion Reaction / Comment(s): no previous blood transfusion Past Psychological History: Bipolar, Schizophrenia Smoking Status: Never smoker Past Alcohol Use History: None Reported Past Drug Use History: None Reported - Past Family History Mother Family Medical History: Cancer Additional Family Medical History / Comment(s): breast Sister(s) Family Medical History: Cancer Additional Family Medical History / Comment(s): kidney and liver General Exam - General Exam Comments Initial Comments: Constitutional: NAD, AOX3, Pt has pleasant affect. HEENT: NC/AT, trachea midline, neck supple, no lymphadenopathy. Posterior pharynx non erythematous, without exudates. External ears appear normal, without discharge. Mucous membranes moist. Eyes PERRLA, EOM intact. There is no scleral icterus. No pallor noted. Cardiopulmonary: RRR, no murmurs, rubs or gallops, no JVD noted. Lungs CTAB in anterior and posterior barr. No peripheral edema. Abdominal exam: Abdomen soft and non-distended. Abdomen non-tender to palpation in all 4 quadrants. Bowel sounds active in LLQ. No hepatosplenomegaly. No ecchymosis Neuro: CN II-XII intact. No nuchal rigidity. No raccon eyes, no king sign, no hemotympanum. No cervical spinal tenderness. NIH 0. MSK: No posterior calf tenderness bilaterally, homans sign negative bilaterally. Posterior tibialis and radial pulse +2 bilaterally. Sensation intact in upper and lower extremities. Full active ROM in upper and lower extremities, 5/5 stregnth. Limitations: no limitations Course Vital Signs 09/07/20 09/07/20 18:13 21:50 Temperature 98.4 F Pulse Rate 88 78 Respiratory 17 18 Rate Blood Pressure 122/74 116/78 O2 Sat by Pulse 99 98 Oximetry Medical Decision Making - Medical Decision Making 59-year-old female patient ED for evaluation. Patient reports that her legs have been feeling somewhat weaker to her recently. On exam strength is intact equal 5 out of 5 bilaterally. H&H without difficulty. She denies any red flag symptoms. CT of her brain was negative for acute process. EKG is nonischemic. Plain film display spondylolisthesis unchanged. UA displayed UTI. Patient initiated on antibiotics. Patient requesting discharge. Patient will be discharged to follow up with primary care prior tomorrow and orthopedic consult will return here if any worsening symptoms. Case discussed with Dr. Salcedo. - Lab Data Result diagrams: 09/07/20 20:11 09/07/20 20:11 Lab Results 09/07/20 09/07/20 09/07/20 Range/Units 20:11 20:11 20:11 WBC 9.6 (3.8-10.6) k/uL RBC 5.16 (3.80-5.40) m/uL Hgb 14.2 (11.4-16.0) gm/dL Hct 45.1 (34.0-46.0) % MCV 87.3 (80.0-100.0) fL MCH 27.5 (25.0-35.0) pg MCHC 31.5 (31.0-37.0) g/dL RDW 14.9 (11.5-15.5) % Plt Count 239 (150-450) k/uL Neutrophils % 77 % Lymphocytes % 16 % Monocytes % 3 % Eosinophils % 2 % Basophils % 0 % Neutrophils # 7.4 (1.3-7.7) k/uL Lymphocytes # 1.6 (1.0-4.8) k/uL Monocytes # 0.3 (0-1.0) k/uL Eosinophils # 0.2 (0-0.7) k/uL Basophils # 0.0 (0-0.2) k/uL Sodium 144 (137-145) mmol/L Potassium 4.3 (3.5-5.1) mmol/L Chloride 106 (98-107) mmol/L Carbon Dioxide 30 (22-30) mmol/L Anion Gap 8 mmol/L BUN 15 (7-17) mg/dL Creatinine 0.85 (0.52-1.04) mg/dL Est GFR (CKD-EPI)AfAm 88 (>60 ml/min/1.73 sqM) Est GFR (CKD-EPI)NonAf 76 (>60 ml/min/1.73 sqM) Glucose 108 H (74-99) mg/dL Plasma Lactic Acid James (0.7-2.0) mmol/L Calcium 9.9 (8.4-10.2) mg/dL Total Bilirubin 0.5 (0.2-1.3) mg/dL AST 27 (14-36) U/L ALT 30 (4-34) U/L Alkaline Phosphatase 101 (38-126) U/L Ammonia (<30) umol/L Troponin I (0.000-0.034) ng/mL Total Protein 7.1 (6.3-8.2) g/dL Albumin 4.4 (3.5-5.0) g/dL Urine Color Light Yellow Urine Appearance Clear (Clear) Urine pH 6.5 (5.0-8.0) Ur Specific [place] 1.010 (1.001-1.035) Urine Protein Negative (Negative) Urine Glucose (UA) Negative (Negative) Urine Ketones Negative (Negative) Urine Blood Negative (Negative) Urine Nitrite Positive H (Negative) Urine Bilirubin Negative (Negative) Urine Urobilinogen <2.0 (<2.0) mg/dL Ur Leukocyte Esterase Moderate H (Negative) Urine RBC 1 (0-5) /hpf Urine WBC 23 H (0-5) /hpf Ur Squamous Epith Cells 1 (0-4) /hpf Urine Bacteria Occasional H (None) /hpf Hyaline Casts 1 (0-2) /lpf Urine Mucus Rare H (None) /hpf 09/07/20 09/07/20 Range/Units 20:11 20:11 WBC (3.8-10.6) k/uL RBC (3.80-5.40) m/uL Hgb (11.4-16.0) gm/dL Hct (34.0-46.0) % MCV (80.0-100.0) fL MCH (25.0-35.0) pg MCHC (31.0-37.0) g/dL RDW (11.5-15.5) % Plt Count (150-450) k/uL Neutrophils % % Lymphocytes % % Monocytes % % Eosinophils % % Basophils % % Neutrophils # (1.3-7.7) k/uL Lymphocytes # (1.0-4.8) k/uL Monocytes # (0-1.0) k/uL Eosinophils # (0-0.7) k/uL Basophils # (0-0.2) k/uL Sodium (137-145) mmol/L Potassium (3.5-5.1) mmol/L Chloride (98-107) mmol/L Carbon Dioxide (22-30) mmol/L Anion Gap mmol/L BUN (7-17) mg/dL Creatinine (0.52-1.04) mg/dL Est GFR (CKD-EPI)AfAm (>60 ml/min/1.73 sqM) Est GFR (CKD-EPI)NonAf (>60 ml/min/1.73 sqM) Glucose (74-99) mg/dL Plasma Lactic Acid James 1.7 (0.7-2.0) mmol/L Calcium (8.4-10.2) mg/dL Total Bilirubin (0.2-1.3) mg/dL AST (14-36) U/L ALT (4-34) U/L Alkaline Phosphatase (38-126) U/L Ammonia 23 (<30) umol/L Troponin I <0.012 (0.000-0.034) ng/mL Total Protein (6.3-8.2) g/dL Albumin (3.5-5.0) g/dL Urine Color Urine Appearance (Clear) Urine pH (5.0-8.0) Ur Specific [place] (1.001-1.035) Urine Protein (Negative) Urine Glucose (UA) (Negative) Urine Ketones (Negative) Urine Blood (Negative) Urine Nitrite (Negative) Urine Bilirubin (Negative) Urine Urobilinogen (<2.0) mg/dL Ur Leukocyte Esterase (Negative) Urine RBC (0-5) /hpf Urine WBC (0-5) /hpf Ur Squamous Epith Cells (0-4) /hpf Urine Bacteria (None) /hpf Hyaline Casts (0-2) /lpf Urine Mucus (None) /hpf - EKG Data -: EKG Interpreted by Me (and Dr. Salcedo ) EKG Comments: Ventricular rate 91, RI interval 148, QRS 100, QT/QTC 376/462. Normal sensory, possible left atrial enlargement. Borderline EKG. No concern for acute ischemia at this time. Disposition Clinical Impression: Back pain, UTI (urinary tract infection) Disposition: HOME SELF-CARE Condition: Stable Instructions (If sedation given, give patient instructions): Urinary Tract Infection in Older Adults (ED) Additional Instructions: Follow up with PCP tomorrow. Follow up with orthopedic consult tomorrow. Take antibiotics as directed. Return to ED with any worsening symptoms. Prescriptions: Cephalexin [Keflex] 500 mg PO Q12HR 10 Days cap Is patient prescribed a controlled substance at d/c from ED?: No Referrals: Fredrick Bradley MD [Primary Care Provider] - 1-2 days Pedro Strange MD [STAFF PHYSICIAN] - 1-2 days
[2020-09-07 20:24] LABS: Basophils % (A) 0 %; Eosinophils # (A) 0.2 k/uL (0-0.7); Eosinophils % (A) 2 %; HCT 45.1 % (34.0-46.0); HGB 14.2 gm/dL (11.4-16.0); Lymphocytes # (A) 1.6 k/uL (1.0-4.8); Lymphocytes % (A) 16 %; MCH 27.5 pg (25.0-35.0); MCHC 31.5 g/dL (31.0-37.0); MCV 87.3 fL (80.0-100.0); Mean Platelet Volume 8.1; Monocytes # (A) 0.3 k/uL (0-1.0); Monocytes % (A) 3 %; Neutrophils # (A) 7.4 k/uL (1.3-7.7); Neutrophils % (A) 77 %; Platelet Count 239 k/uL (150-450); RBC 5.16 m/uL (3.80-5.40); RDW 14.9 % (11.5-15.5); WBC 9.6 k/uL (3.8-10.6)
[2020-09-07 20:30] LABS: Lactic Acid, Venous 1.7 mmol/L (0.7-2.0)
[2020-09-07 20:31] LABS: Albumin 4.4 g/dL (3.5-5.0); Calcium 9.9 mg/dL (8.4-10.2); Potassium 4.3 mmol/L (3.5-5.1); Total Bilirubin 0.5 mg/dL (0.2-1.3); Total Protein 7.1 g/dL (6.3-8.2)
--- NOTE | 2020-09-07 20:31 | CT ---
EXAMINATION TYPE: CT brain wo con DATE OF EXAM: 09/07/2020 COMPARISON: None HISTORY: Weakness and slurred speech. CT DLP: 1172.4 mGycm Automated exposure control for dose reduction was used. Ventricles have normal size. There is no mass effect nor midline shift. There is no sign of intracran ial hemorrhage. The calvarium is intact. There is mucus retention cyst in the right maxillary sinus. There is normal aeration of the mastoid sinuses. IMPRESSION: Normal CT scan of the brain. Right maxillary sinusitis.
--- NOTE | 2020-09-07 20:34 | XR ---
EXAMINATION TYPE: XR lumbar spine 2 or 3V DATE OF EXAM: 09/07/2020 COMPARISON: 10/23/2019 HISTORY: Pain TECHNIQUE: 3 views FINDINGS: There is 5 mm anterior subluxation of L4 in relation L5. Posterior elements are intact. The re is no significant lumbar disc space narrowing. There is anterior spurring at T12-L1. The sacroilia c joints are intact. There is no compression fracture. IMPRESSION: There is a degenerative first-degree L4-5 spondylolisthesis unchanged compared to old exa m. No acute bony abnormality.
[2020-09-07 20:50] LABS: Appearance,Urine Clear (Clear); Bacteria,Urine Occasional /hpf; Bilirubin,Urine Negative (Negative); Blood,Urine Negative (Negative); Color,Urine Light Yellow; Glucose,Urine (UA) Negative (Negative); Hyaline Casts,Urine 1 /lpf (0-2); Ketones,Urine Negative (Negative); Leukocyte Esterase,Urine Moderate (Negative); Mucus,Urine Rare /hpf; Nitrite,Urine Positive (Negative); PH, Urine 6.5 (5.0-8.0); Protein,Urine Negative (Negative); RBC,Urine 1 /hpf (0-5); Squamous Epithelial Cell,Urine 1 /hpf (0-4); Urobilinogen,Urine <2.0 mg/dL (<2.0); WBC,Urine 23 /hpf (0-5)
[2020-09-07 21:51] VITALS: BP 116/78; PULSE 78; RESP 18
[2020-09-07] MEDS ORDERED: cefTRIAXone IN SWFI 1,000 MG/10 ML SYRINGE IVP STA (21:51)
== END 2020-09-07 21:59 | disposition home or self-care (01) ==
LOC: EC 18:03
DX: N39.0 Urinary tract infection, site not specified (principal); M62.81 Muscle weakness (generalized); R41.0 Disorientation, unspecified; M47.816 Spondylosis without myelopathy or radiculopathy, lumbar region; E11.9 Type 2 diabetes mellitus without complications; J45.909 Unspecified asthma, uncomplicated; F31.9 Bipolar disorder, unspecified; F20.9 Schizophrenia, unspecified; Z79.51 Long term (current) use of inhaled steroids; Z79.4 Long term (current) use of insulin; Z79.899 Other long term (current) drug therapy; Z91.018 Allergy to other foods; Z96.652 Presence of left artificial knee joint
CPT/HCPCS: 36415; 93005; 80053; 82140; 83605; 84484; 85025; 81001; 87086; 72100; 70450; 99285; 96374; J0696

== ENCOUNTER → 2021-03-30 | Outpatient (CLI) | payer MEDICARE, OTHER ==
--- NOTE | 2021-03-30 16:27 | US ---
EXAMINATION TYPE: US thyroid st tissue head/neck DATE OF EXAM: 03/30/2021 COMPARISON: US 2020 CLINICAL HISTORY: E04.1 Thyroid Nodule. GLAND SIZE: Right Lobe: 5.2 x 1.2 x 2.5 cm Overall Parenchyma: homogenous Left Lobe: 5.1 x 1.5 x 1.9 cm Overall Parenchyma: homogeneous Isthmus Thickness: 0.5 cm NODULES RIGHT: # of nodules measured on right: multiple small nodules with largest described below 1. 1.0 X 0.4 x 0.9 cm, lower medial, mixed cystic and solid, hypoechoic nodule, which is wider than tall, with smooth margins, without echogenic foci. Prior size: 0.8 x 0.6 x 0.7 cm LEFT: # of nodules measured on left: multiple small nodules with largest described below 1. 0.8 X 0.5 x 0.7 cm, mid medial, mixed cystic and solid, hypoechoic nodule, which is wider than t all, with smooth margins, without echogenic foci. Prior size: 0.6 x 0.4 x 0.7 cm ISTHMUS: # of nodules measured in the isthmus: 1 1. 1.2 X 0.6 x 1.0 cm mixed cystic and solid, hypoechoic nodule, which is wider than tall, with smo oth margins, without echogenic foci. Prior size: 1.1 x 0.8 x 1.2 cm Bilateral neck scanned, no evidence of lymphadenopathy. IMPRESSION: Mild enlargement of the thyroid gland. Relatively stable bilateral thyroid nodules. Continued [facility] follow-up would BE helpful.
== END | disposition home or self-care (01) ==
LOC: RADUSWWP 11:50
PROVIDERS: ATTEND Otolaryngology
DX: E04.9 Nontoxic goiter, unspecified (principal)
CPT/HCPCS: 76536

== ENCOUNTER → 2021-06-27 | Outpatient (CLI) | payer MEDICARE, OTHER ==
--- NOTE | 2021-06-28 10:26 | MM ---
Reason for exam: screening (asymptomatic). Last mammogram was performed 1 year and 5 months ago. History: Patient is postmenopausal and had first child at age 46. Family history of premenopausal breast cancer in mother at age 40. Physical Findings: A clinical breast exam by your physician is recommended on an annual basis and results should be correlated with mammographic findings. MG 3D Screening Mammo W/Cad Bilateral CC and MLO view(s) were taken. Prior study comparison: January 11, 2020, bilateral MG 3d screening mammo w/cad. November 27, 2018, bilateral MG 3d screening mammo w/cad. There are scattered fibroglandular densities. There is no discrete abnormality. No significant changes when compared with prior studies. ASSESSMENT: Negative, BI-RAD 1 RECOMMENDATION: Routine screening mammogram of both breasts in 1 year.
== END | disposition home or self-care (01) ==
LOC: RADMAMWWP 09:24
PROVIDERS: ATTEND Family Medicine
DX: Z12.31 Encounter for screening mammogram for malignant neoplasm of breast (principal); Z78.0 Asymptomatic menopausal state; Z80.3 Family history of malignant neoplasm of breast
CPT/HCPCS: 77063; 77067

== ENCOUNTER 2021-08-26 14:40 | Inpatient (IN) | payer MEDICARE, OTHER ==
[2021-08-26] MEDS ORDERED: SODIUM CHLORIDE 0.9% 1,000 ML IV STA (16:33)
--- NOTE | 2021-08-26 16:36 | ED ---
General Adult HPI - General Chief complaint: Recheck/Abnormal Lab/Rx Stated complaint: Diabetic Wound L Foot Time Seen by Provider: 08/26/21 16:08 Source: patient, RN notes reviewed Mode of arrival: ambulatory Limitations: no limitations - History of Present Illness Initial comments: 60-year-old female with a past medical history of diabetes mellitus, asthma presents to the emergency room for a chief complaint of ulcers of the left foot. Patient states she has a diabetic foot ulcer. States it is benign for about a week or so. She saw her water pollution control technician when it was just a black at. However over the past week her foot has started to swell and now it looks infected and draining. Patient denies pain. Denies fevers.Patient has no other complaints a t this time including shortness of breath, chest pain, abdominal pain, nausea or vomiting, headache, or visual changes. - Related Data Home Medications Medication Instructions Recorded Confirmed Albuterol Sulfate [Proair Hfa] 2 puff INHALATION RT-Q6H PRN 04/10/16 08/26/21 Pregabalin [Lyrica] 100 mg PO BID 02/11/17 08/26/21 buPROPion HCL [Wellbutrin XL] 300 mg PO DAILY 11/26/18 08/26/21 Dulaglutide [Trulicity] 1.5 mg SQ ZAMBRANO 11/27/18 08/26/21 Hydrocodone/Acetaminophen [[place] 1 tab PO Q6H PRN 08/03/19 08/26/21 5-325] buPROPion HCL [Wellbutrin XL] 150 mg PO W/LUNCH 08/03/19 08/26/21 lamoTRIgine [LaMICtal] 150 mg PO BID 08/03/19 08/26/21 Atorvastatin [Lipitor] 40 mg PO HS 02/05/20 08/26/21 Montelukast [Singulair] 10 mg PO HS 02/05/20 08/26/21 Ketoconazole [Ketoconazole 2%] 1 applic TOPICAL BID 09/07/20 08/26/21 SILVER sulfADIAZINE CREAM 1 applic TOPICAL BID 09/07/20 08/26/21 [Silvadene Cream] ARIPiprazole [Abilify] 15 mg PO HS 08/26/21 08/26/21 Diphenoxylate HCl/Atropine 1 - 2 tab PO QID PRN 08/26/21 08/26/21 [Lomotil 2.5-0.025 mg Tablet] Insulin Glargine,Hum.rec.anlog 6 unit SQ W/BRKFST 08/26/21 08/26/21 [Lantus Solostar Pen] Insulin Glargine,Hum.rec.anlog 10 unit SQ W/SUPPER 08/26/21 08/26/21 [Lantus Solostar Pen] Allergies Allergy/AdvReac Type Severity Reaction Status Date / Time blackberry Allergy Rash/Hives Verified 08/26/21 17:33 blueberry Allergy Rash/Hives Verified 08/26/21 17:33 raspberry Allergy Rash/Hives Verified 08/26/21 17:33 strawberry Allergy Rash/Hives Verified 08/26/21 17:33 Review of Systems ROS Statement: Those systems with pertinent positive or pertinent negative responses have been documented in the HPI. ROS Other: All systems not noted in ROS Statement are negative. Past Medical History Past Medical History: Asthma, Diabetes Mellitus, Skin Disorder Additional Past Medical History / Comment(s): on atorvastatin but state cholesterol not elevated History of Any Multi-Drug Resistant Organisms: VRE Date of last positivie culture/infection: 05/30/16 MDRO Source:: left toe Past Surgical History: Orthopedic Surgery Additional Past Surgical History / Comment(s): left foot surgery, left knee arthroplasty Past Anesthesia/Blood Transfusion Reactions: No Reported Reaction Additional Past Anesthesia/Blood Transfusion Reaction / Comment(s): no previous blood transfusion Past Psychological History: Bipolar, Schizophrenia Smoking Status: Never smoker Past Alcohol Use History: None Reported Past Drug Use History: None Reported - Past Family History Mother Family Medical History: Cancer Additional Family Medical History / Comment(s): breast Sister(s) Family Medical History: Cancer Additional Family Medical History / Comment(s): kidney and liver General Exam Limitations: no limitations General appearance: alert, in no apparent distress Head exam: Present: atraumatic Eye exam: Present: normal appearance, PERRL, EOMI. Absent: scleral icterus, conjunctival injection ENT exam: Present: normal exam, mucous membranes moist Neck exam: Present: normal inspection, full ROM. Absent: tenderness Respiratory exam: Present: normal lung sounds bilaterally. Absent: respiratory distress, wheezes Cardiovascular Exam: Present: regular rate, normal rhythm, normal heart sounds GI/Abdominal exam: Present: soft, normal bowel sounds. Absent: distended, tenderness Extremities exam: Present: normal capillary refill (Capillary refill less than 2 seconds, D he pulse 2+ left lower extremity), pedal edema (Edema noted of the left foot.), other (Patient does have necrotic ulceration noted of the medial aspect of the left plantar foot.) Neurological exam: Present: alert Course Vital Signs 08/26/21 14:48 Temperature 98.6 F Pulse Rate 80 Respiratory 20 Rate Blood Pressure 126/66 O2 Sat by Pulse 98 Oximetry Medical Decision Making - Medical Decision Making Vitals are stable. Patient is well-appearing. Patient however does have edema with erythema and ulceration on the plantar aspect of the left foot. CBC CMP unremarkable. Lactic acid is normal. Blood cultures pending. Foot x-ray shows no osteomyelitis. CT was ordered given the concern for deep tissue infection. At this time patient started on broad-spectrum antibiotics. She will be admitted. Dr. Rivas did accept admission. - Lab Data Result diagrams: 08/26/21 16:37 08/26/21 16:37 Lab Results 08/26/21 08/26/21 08/26/21 Range/Units 16:37 16:37 16:37 WBC 6.5 (3.8-10.6) k/uL RBC 4.39 (3.80-5.40) m/uL Hgb 12.8 (11.4-16.0) gm/dL Hct 39.4 (34.0-46.0) % MCV 89.8 (80.0-100.0) fL MCH 29.1 (25.0-35.0) pg MCHC 32.4 (31.0-37.0) g/dL RDW 13.4 (11.5-15.5) % Plt Count 245 (150-450) k/uL MPV 7.6 Neutrophils % 58 % Lymphocytes % 30 % Monocytes % 7 % Eosinophils % 3 % Basophils % 1 % Neutrophils # 3.8 (1.3-7.7) k/uL Lymphocytes # 1.9 (1.0-4.8) k/uL Monocytes # 0.4 (0-1.0) k/uL Eosinophils # 0.2 (0-0.7) k/uL Basophils # 0.0 (0-0.2) k/uL Sodium 139 (137-145) mmol/L Potassium 4.0 (3.5-5.1) mmol/L Chloride 106 (98-107) mmol/L Carbon Dioxide 27 (22-30) mmol/L Anion Gap 6 mmol/L BUN 15 (7-17) mg/dL Creatinine 0.63 (0.52-1.04) mg/dL Est GFR (CKD-EPI)AfAm >90 (>60 ml/min/1.73 sqM) Est GFR (CKD-EPI)NonAf >90 (>60 ml/min/1.73 sqM) Glucose 95 (74-99) mg/dL Plasma Lactic Acid James 0.7 (0.7-2.0) mmol/L Calcium 9.6 (8.4-10.2) mg/dL Total Bilirubin 0.3 (0.2-1.3) mg/dL AST 31 (14-36) U/L ALT 25 (4-34) U/L Alkaline Phosphatase 87 (38-126) U/L Total Protein 6.1 L (6.3-8.2) g/dL Albumin 3.8 (3.5-5.0) g/dL Disposition Clinical Impression: Cellulitis, Ulcer Disposition: ADMITTED IP TO THIS HOSP Is patient prescribed a controlled substance at d/c from ED?: No Referrals: Fredrick Bradley MD [Primary Care Provider] - 1-2 days Time of Disposition: 18:14
--- NOTE | 2021-08-26 16:54 | XR ---
EXAMINATION TYPE: XR foot complete LT DATE OF EXAM: 08/26/2021 COMPARISON: NONE HISTORY: Wound. Cellulitis. TECHNIQUE: 3 views FINDINGS: There is plate with multiple screws fusing the first tarsometatarsal joint. There is also f usion of the talonavicular joint. There are 2 screws fusing the subtalar joint. There is plus planus deformity. I see no fracture nor dislocation. There is no sign of focal bone destruction. IMPRESSION: Previous surgery. Pes planus. No sign of osteomyelitis.
[2021-08-26 17:00] LABS: Basophils % (A) 1 %; Eosinophils # (A) 0.2 k/uL (0-0.7); Eosinophils % (A) 3 %; HCT 39.4 % (34.0-46.0); HGB 12.8 gm/dL (11.4-16.0); Lymphocytes # (A) 1.9 k/uL (1.0-4.8); Lymphocytes % (A) 30 %; MCH 29.1 pg (25.0-35.0); MCHC 32.4 g/dL (31.0-37.0); MCV 89.8 fL (80.0-100.0); Mean Platelet Volume 7.6; Monocytes # (A) 0.4 k/uL (0-1.0); Monocytes % (A) 7 %; Neutrophils # (A) 3.8 k/uL (1.3-7.7); Neutrophils % (A) 58 %; Platelet Count 245 k/uL (150-450); RBC 4.39 m/uL (3.80-5.40); RDW 13.4 % (11.5-15.5); WBC 6.5 k/uL (3.8-10.6)
[2021-08-26 17:14] LABS: ALT 25 U/L (4-34); AST 31 U/L (14-36); African American GFR (CKD) >90 (>60 ml/min/1.73 sqM); Albumin 3.8 g/dL (3.5-5.0); Alkaline Phosphatase 87 U/L (38-126); Anion Gap 6 mmol/L; Blood Urea Nitrogen 15 mg/dL (7-17); Calcium 9.6 mg/dL (8.4-10.2); Carbon Dioxide 27 mmol/L (22-30); Chloride 106 mmol/L (98-107); Glucose 95 mg/dL (74-99); Non-African American GFR(CKD) >90 (>60 ml/min/1.73 sqM); Sodium 139 mmol/L (137-145); Total Bilirubin 0.3 mg/dL (0.2-1.3); Total Protein 6.1 g/dL (6.3-8.2)
[2021-08-26] MEDS ORDERED: PIPERACILLIN-TAZOBACTAM 3.375 GM in SODIUM CHLORIDE 0.9% 100 ML IVPB STA (18:10)
[2021-08-26] MEDS ORDERED: VANCOMYCIN IV PER PHARMACY 1 EACH MISC MISCELLANE PRN (18:10)
[2021-08-26] MEDS ORDERED: ACETAMINOPHEN TAB 325 MG TAB PO PRN (18:14)
[2021-08-26] MEDS ORDERED: NALOXONE 0.4 MG/ML 1 ML VIAL IV PRN (18:14)
[2021-08-26] MEDS ORDERED: ONDANSETRON 4 MG/2 ML VIAL IVP PRN (18:14)
[2021-08-26] MEDS ORDERED: SODIUM CHLORIDE 0.9% 1,000 ML IV SCH (18:15)
[2021-08-26] MEDS ORDERED: DIPHENOX-ATROP 2.5-0.025 MG 1 EACH TAB PO PRN (18:16)
[2021-08-26] MEDS ORDERED: ALBUTEROL NEBULIZED 2.5 MG/3 ML INHALATION PRN (18:16)
[2021-08-26] MEDS ORDERED: VANCOMYCIN 1,750 MG in SODIUM CHLORIDE 0.9% 500 ML 500 ML IVPB STA (18:23)
[2021-08-26 18:38] LABS: Glucose,Whole Blood 120 mg/dL (75-99)
[2021-08-26] MEDS ORDERED: ALPRAZolam 0.25 MG TAB PO PRN (18:59)
--- NOTE | 2021-08-26 19:37 | CT ---
EXAMINATION TYPE: CT foot LT w con DATE OF EXAM: 08/26/2021 COMPARISON: 06/06/2016 HISTORY: Cellulitis, possible abscess LT foot. CT DLP: 392.6 mGycm Automated exposure control for dose reduction was used. CONTRAST: Performed with IV Contrast, patient injected with 100 mL of Isovue 300. Images were obtained from the lower tibia to the bottom of the foot with IV contrast. There is previous fusion surgery of the talonavicular joint and the first tarsometatarsal joint. Ther e is fusion of the navicular cuneiform joint. The metatarsals appear intact. There is subcutaneous ed manjit of the midfoot. There is mild pes planus deformity. There are screws fixing the subtalar joint. I see no definite soft tissue air. There is some fluid accumulation on the plantar aspect of the midfo ot inferior to the navicular and the first cuneiform bone. This measures approximate 4 x 1 cm. The to es appear intact. IMPRESSION: Previous fusion surgery. Pes planus deformity. Elongated fluid collection on the plantar aspect of th e midfoot on the medial aspect that could relate to abscess. Subcutaneous edema around the foot.
--- NOTE | 2021-08-26 19:54 | HP ---
HISTORY AND PHYSICAL I am covering for Dr. Bradley. DATE OF SERVICE: 08/26/2021 CHIEF COMPLAINT: Left foot diabetic wound and ulcer and abscess. HISTORY OF PRESENT ILLNESS: This 60-year-old woman with a past medical history of multiple medical problems, including asthma, diabetes mellitus VRE, being followed by Dr. Bradley in the outpatient setting, was complaining of left foot pain and some swelling. The patient had a diabetic ulcer for about a week or so. Currently the patient is seeing a imaging center manager, and currently there is more swelling and discoloration and pain and tenderness, and the patient came to [facility] and was admitted for further evaluation and treatment. CT scan has been requested. The patient underwent a foot x- ray which showed previous surgery, pes planus and no significant osteomyelitis. There is no history of any fever, rigors or chills. No history of headache, loss of consciousness, seizures at this time. PAST MEDICAL HISTORY: History of asthma, diabetes mellitus, skin disorder, history of VRE. MEDICATIONS: Home medications are reviewed and include Singulair, Lantus 10 units, Trulicity, Lipitor, ProAir, Abilify, Silvadene, ketoconazole, Lamictal, Wellbutrin. Doses and other medications are reviewed. ALLERGIES: BLACKBERRY AND RASPBERRY. FAMILY HISTORY: History of breast cancer in the family. SOCIAL HISTORY: No history of smoking. No history of alcohol intake. REVIEW OF SYSTEMS: ENT: No diminished hearing. No diminished vision. CARDIOVASCULAR SYSTEM: No angina, palpitations. RESPIRATORY SYSTEM: No cough, hemoptysis. GI: No nausea, vomiting, diarrhea. : No dysuria. NERVOUS SYSTEM: As mentioned earlier. ALLERGY/IMMUNOLOGY: No asthma or hay fever. MUSCULOSKELETAL: As mentioned earlier. HEMATOLOGY/ONCOLOGY: No history of anemia. ENDOCRINE: As mentioned earlier. CONSTITUTIONAL: As mentioned earlier. DERMATOLOGY: As mentioned earlier. RHEUMATOLOGY: Negative. PSYCHIATRY: As mentioned earlier. PHYSICAL EXAMINATION: Patient alert and oriented x3. Pulse 80, blood pressure 120/66, respiration 20, temperature 98.6, pulse ox 98% on room air. HEENT: Conjunctivae normal. Oral mucosa moist. NECK: No jugular venous distention. CARDIOVASCULAR: S1, S2 muffled. RESPIRATION: Breath sounds diminished at the bases. No rhonchi. No crackles. ABDOMEN: Soft, nontender. No mass palpable. LEGS: Significant pain and swelling of the left foot also present. Some tenderness and warmth also present. Some discoloration also present. There is some fluctuant swelling also present on the dorsum of the left foot. NERVOUS SYSTEM: Higher functions as mentioned earlier. Moves all 4 limbs. Mild peripheral neuropathy present. LYMPHATICS: No lymph node palpable in neck, axillae or groin. SKIN: No ulcer, rash, bleeding. JOINTS: No active deforming arthropathy. LABS: CBC within normal limits. Glucose 110. Other labs are noted. ASSESSMENT: 1. Acute diabetic left foot ulcer with possible abscess and cellulitis. 2. Severe pain. 3. History of asthma. 4. Diabetes mellitus, type 2. 5. History of VRE. 6. History of degenerative joint disease. 7. History of bipolar, schizophrenia. 8. Obesity with body mass index of 32. 9. FULL CODE. RECOMMENDATIONS AND DISCUSSION: In this 60-year-old woman who presented with multiple complex medical issues, we will monitor the patient closely, continue the current medications, continue symptomatic treatment. Will initiate broad-spectrum IV antibiotics. Infectious disease evaluation. I would also recommend vascular surgery evaluation. Prognosis is guarded because of the multiple complex medical issues. Further recommendations to follow. A copy of this dictation is being forwarded to Dr. Bradley, who is the primary physician. MICHELLEL / SYLVIAN: [id number] / MTDD
[2021-08-26 21:04] LABS: Glucose,Whole Blood 109 mg/dL (75-99)
[2021-08-26] MEDS: ATORVASTATIN 40 MG TAB PO SCH (21:21)
[2021-08-26] MEDS: MONTELUKAST 10 MG TAB PO SCH (21:21)
[2021-08-26] MEDS: lamoTRIgine 100 MG TAB PO SCH (21:21)
[2021-08-26] MEDS: HEPARIN SODIUM,PORCINE/PF 5,000 UNIT/0.5 ML SYRINGE SQ SCH (21:22)
[2021-08-26] MEDS: INSULIN ASPART (NovoLOG) 100 UNIT/ML VIAL SQ SCH (21:26)
[2021-08-26] MEDS: LACTATED RINGERS 1,000 ML IV SCH (21:35)
[2021-08-26] MEDS: ARIPiprazole 15 MG TAB PO SCH (22:40)
[2021-08-26] MEDS: PREGABALIN 100 MG CAP PO SCH (22:41)
[2021-08-26] MEDS: CLOTRIMAZOLE 1% CREAM 30 GM TUBE TOPICAL SCH (22:41)
[2021-08-27] MEDS: HYDROcodone/APAP 5-325MG 1 EACH TAB PO PRN (02:16)
[2021-08-27] MEDS: PIPERACILLIN-TAZOBACTAM 3.375 GM in SODIUM CHLORIDE 0.9% 100 ML IVPB SCH ×2 (02:17→11:37)
[2021-08-27] MEDS: LACTATED RINGERS 1,000 ML IV SCH ×3 (05:27→21:32)
[2021-08-27] MEDS: VANCOMYCIN 1,750 MG in SODIUM CHLORIDE 0.9% 500 ML 500 ML IVPB SCH ×3 (06:24→21:24)
[2021-08-27 07:28] LABS: Glucose,Whole Blood 97 mg/dL (75-99)
[2021-08-27] MEDS: INSULIN ASPART (NovoLOG) 100 UNIT/ML VIAL SQ SCH ×4 (07:45→21:20)
[2021-08-27] MEDS: INSULIN DETEMIR (LEVEMIR) 100 UNIT/ML SYR SQ SCH ×2 (07:45→17:50)
[2021-08-27] MEDS: PANTOPRAZOLE 40 MG TABLET PO SCH (07:55)
[2021-08-27] MEDS: PREGABALIN 100 MG CAP PO SCH ×2 (07:55→21:23)
[2021-08-27] MEDS: lamoTRIgine 100 MG TAB PO SCH ×2 (07:55→21:24)
[2021-08-27] MEDS: buPROPion XL 300 MG TAB.ER.24H PO SCH (07:56)
[2021-08-27] MEDS: HEPARIN SODIUM,PORCINE/PF 5,000 UNIT/0.5 ML SYRINGE SQ SCH ×2 (07:58→21:23)
[2021-08-27] MEDS ORDERED: LIDOCAINE 1% INJ 10MG/ML (20 ML MDV) ONE (10:29)
[2021-08-27] MEDS ORDERED: LIDOCAINE 1% INJ 10MG/ML (20 ML MDV) SQ ONE (10:29)
--- NOTE | 2021-08-27 10:50 | P.OP ---
Date of Procedure: 08/27/21 Preoperative Diagnosis: Abscess plantar surface left foot. Postoperative Diagnosis: Same. Procedure(s) Performed: Incision and drainage left foot abscess with culture. Implants: None. Anesthesia: local Surgeon: Koby Bean Estimated Blood Loss (ml): 5 Urine output (ml): 0 Pathology: other (culyure) Condition: stable Disposition: no change Indications for Procedure: Abscess left foot plantar surface Description of Procedure: Patient was placed supine in her bed. The plantar surface of the left foot was sterilely prepped with ChloraPrep. 1% Xylocaine was utilized for local anesthesia. In the area of fluctuance skin incision was made with a surgical scalpel. Small amount of turbid/purulent fluid was expressed and this was cultured both aerobically and anaerobically. Exploration of the wound demonstrated no deep cavity or undermining/tunneling. She was applied over the wound. Patient tolerated the procedure well.
--- NOTE | 2021-08-27 10:56 | P.GSCN ---
History of Present Illness Consult date: 08/27/21 Reason for Consult: Possible left foot abscess. Requesting physician: Davy Rivas History of present illness: Patient is a 60-year-old female with a 29 year history of diabetes mellitus who presented with one month history of occasional drainage from the plantar surface of the left foot. Patient has a history of Charcot foot and has undergone 2 procedures of the foot with placement of the hardware and attempt to correct the bony deformity. The last time the patient saw her operating orthopedic surgeon was greater than 2 years ago. There is no history of chills or fevers. Past Medical History Past Medical History: Asthma, Diabetes Mellitus, Skin Disorder Additional Past Medical History / Comment(s): on atorvastatin but state cholesterol not elevated History of Any Multi-Drug Resistant Organisms: VRE Year Discovered:: 05/30/16 MDRO Source:: left toe Past Surgical History: Orthopedic Surgery Additional Past Surgical History / Comment(s): left foot surgery, left knee arthroplasty Past Anesthesia/Blood Transfusion Reactions: No Reported Reaction Additional Past Anesthesia/Blood Transfusion Reaction / Comm: no previous blood transfusion Past Psychological History: Bipolar, Schizophrenia Smoking Status: Never smoker Past Alcohol Use History: None Reported Past Drug Use History: None Reported - Past Family History Mother Family Medical History: Cancer Additional Family Medical History / Comment(s): breast Sister(s) Family Medical History: Cancer Additional Family Medical History / Comment(s): kidney and liver Medications and Allergies Home Medications Medication Instructions Recorded Confirmed Type Albuterol Sulfate [Proair Hfa] 2 puff INHALATION RT-Q6H PRN 04/10/16 08/26/21 History Pregabalin [Lyrica] 100 mg PO BID 02/11/17 08/26/21 History buPROPion HCL [Wellbutrin XL] 300 mg PO DAILY 11/26/18 08/26/21 History Dulaglutide [Trulicity] 1.5 mg SQ ZAMBRANO 11/27/18 08/26/21 History Hydrocodone/Acetaminophen [[place] 1 tab PO Q6H PRN 08/03/19 08/26/21 History 5-325] buPROPion HCL [Wellbutrin XL] 150 mg PO W/LUNCH 08/03/19 08/26/21 History lamoTRIgine [LaMICtal] 150 mg PO BID 08/03/19 08/26/21 History Atorvastatin [Lipitor] 40 mg PO HS 02/05/20 08/26/21 History Montelukast [Singulair] 10 mg PO HS 02/05/20 08/26/21 History Ketoconazole [Ketoconazole 2%] 1 applic TOPICAL BID 09/07/20 08/26/21 History SILVER sulfADIAZINE CREAM 1 applic TOPICAL BID 09/07/20 08/26/21 History [Silvadene Cream] ARIPiprazole [Abilify] 15 mg PO HS 08/26/21 08/26/21 History Diphenoxylate HCl/Atropine 1 - 2 tab PO QID PRN 08/26/21 08/26/21 History [Lomotil 2.5-0.025 mg Tablet] Insulin Glargine,Hum.rec.anlog 6 unit SQ W/BRKFST 08/26/21 08/26/21 History [Lantus Solostar Pen] Insulin Glargine,Hum.rec.anlog 10 unit SQ W/SUPPER 08/26/21 08/26/21 History [Lantus Solostar Pen] Allergies Allergy/AdvReac Type Severity Reaction Status Date / Time blackberry Allergy Rash/Hives Verified 08/26/21 17:33 blueberry Allergy Rash/Hives Verified 08/26/21 17:33 raspberry Allergy Rash/Hives Verified 08/26/21 17:33 strawberry Allergy Rash/Hives Verified 08/26/21 17:33 Surgical - Exam Osteopathic Statement: *. No significant issues noted on an osteopathic stru ctural exam other than those noted in the History and Physical/Consult. Vital Signs Temp Pulse Resp BP Pulse Ox 98.6 F 80 20 126/66 98 08/26/21 14:48 08/26/21 14:48 08/26/21 14:48 08/26/21 14:48 08/26/21 14:48 Femoral, popliteal, DP and PT pulses are intact on the left. There is an area of fluctuance along the medial aspect of the plantar surface left foot. With manual compression small amount of purulent/turbid appearing fluid is expressed thus giving rise to the concern for abscess. Results - Labs 08/26/21 16:37 08/26/21 16:37 Abnormal Lab Results - Last 24 Hours (Table) 10/08/26/21 08/26/21 Range/Units 16:37 18:37 21:02 POC Glucose (mg/dL) 120 H 109 H (75-99) mg/dL Total Protein 6.1 L (6.3-8.2) g/dL Diabetes panel 08/26/21 Range/Units 16:37 Sodium 139 (137-145) mmol/L Potassium 4.0 (3.5-5.1) mmol/L Chloride 106 (98-107) mmol/L Carbon Dioxide 27 (22-30) mmol/L BUN 15 (7-17) mg/dL Creatinine 0.63 (0.52-1.04) mg/dL Glucose 95 (74-99) mg/dL Calcium 9.6 (8.4-10.2) mg/dL AST 31 (14-36) U/L ALT 25 (4-34) U/L Alkaline Phosphatase 87 (38-126) U/L Total Protein 6.1 L (6.3-8.2) g/dL Albumin 3.8 (3.5-5.0) g/dL Calcium panel 08/26/21 Range/Units 16:37 Calcium 9.6 (8.4-10.2) mg/dL Albumin 3.8 (3.5-5.0) g/dL Pituitary panel 08/26/21 Range/Units 16:37 Sodium 139 (137-145) mmol/L Potassium 4.0 (3.5-5.1) mmol/L Chloride 106 (98-107) mmol/L Carbon Dioxide 27 (22-30) mmol/L BUN 15 (7-17) mg/dL Creatinine 0.63 (0.52-1.04) mg/dL Glucose 95 (74-99) mg/dL Calcium 9.6 (8.4-10.2) mg/dL Adrenal panel 08/26/21 Range/Units 16:37 Sodium 139 (137-145) mmol/L Potassium 4.0 (3.5-5.1) mmol/L Chloride 106 (98-107) mmol/L Carbon Dioxide 27 (22-30) mmol/L BUN 15 (7-17) mg/dL Creatinine 0.63 (0.52-1.04) mg/dL Glucose 95 (74-99) mg/dL Calcium 9.6 (8.4-10.2) mg/dL Total Bilirubin 0.3 (0.2-1.3) mg/dL AST 31 (14-36) U/L ALT 25 (4-34) U/L Alkaline Phosphatase 87 (38-126) U/L Total Protein 6.1 L (6.3-8.2) g/dL Albumin 3.8 (3.5-5.0) g/dL Assessment and Plan Assessment: Concern for abscess left foot Plan: His with the patient the findings of the CAT scan and other radiographs of the left foot as well as my physical examination and my concern for abscess. Think this can be easily drained at the bedside. The procedure, risks and benefits were discussed with the patient. Patient wished to proceed. As such I&D will be performed at the bedside today. Cause the patient's bony hardware in the left foot I am concerned about the pos sibility of infection of this hardware material. One may wish to consider orthopedic evaluation in this regard. Time with Patient: Greater than 30
[2021-08-27 11:12] LABS: Basophils # (A) 0.04 X 10*3/uL (0.00-0.10); Basophils % (A) 0.8 %; Eosinophils # (A) 0.16 X 10*3/uL (0.04-0.35); HCT 36.4 % (37.2-46.3); HGB 11.6 g/dL (12.0-15.0); Lymphocytes # (A) 1.64 X 10*3/uL (0.90-5.00); Lymphocytes % (A) 31.2 %; MCHC 31.9 g/dL (32.0-37.0); MCV 87.9 fL (80.0-97.0); Mean Platelet Volume 10.9 fL (9.5-12.2); Monocytes # (A) 0.47 X 10*3/uL (0.20-1.00); Neutrophils # (A) 2.93 X 10*3/uL (1.80-7.70); Neutrophils % (A) 55.8 %; Platelet Count 242 X 10*3/uL (140-440); RBC 4.14 X 10*6/uL (4.10-5.20); RDW 13.4 % (11.5-14.5); WBC 5.25 X 10*3/uL (4.50-10.00)
[2021-08-27] MEDS: CLOTRIMAZOLE 1% CREAM 30 GM TUBE TOPICAL SCH ×2 (11:33→21:24)
[2021-08-27 11:38] LABS: African American GFR (CKD) 109.2 (60.0-200.0); Anion Gap 10.3 mmol/L (4.00-12.00); BUN/Creat Ratio 12.93 Ratio (12.00-20.00); Blood Urea Nitrogen 9.1 mg/dL (9.0-27.0); Calcium 9.1 mg/dL (8.7-10.3); Carbon Dioxide 26.4 mmol/L (21.6-31.8); Non-African American GFR(CKD) 94.2 (60.0-200.0)
[2021-08-27 11:42] LABS: Glucose,Whole Blood 179 mg/dL (75-99)
[2021-08-27 16:32] LABS: Glucose,Whole Blood 92 mg/dL (75-99)
--- NOTE | 2021-08-27 17:17 | PN ---
PROGRESS NOTE I am covering for Dr. Bradley. DATE OF SERVICE: 08/27/2021 This 60-year-old woman who was admitted with significant diabetic foot ulceration and possible abscess on the right foot underwent bedside incision and drainage by Surgery, Dr. Brandon. The I and D revealed a small amount of turbid purulent fluid, which was sent for both aerobic and anaerobic cultures. No chest pain. No palpitations. No fever. PHYSICAL EXAMINATION: Alert and oriented x3. Pulse 71, blood pressure 127/69, respiration 18, temperature 98.4, pulse ox 99% on room air. HEENT: Conjunctivae normal. NECK: No jugular venous distention. CARDIOVASCULAR: S1, S2 muffled. RESPIRATION: Breath sounds diminished at the bases. No rhonchi. No crackles. ABDOMEN: Soft. NERVOUS SYSTEM: No focal deficit. EXAMINATION OF FOOT: Left foot status post surgery. LABS: WBC 5.1, hemoglobin 11.6. Glucose noted. ASSESSMENT: 1. Acute left diabetic foot abscess with possible cellulitis, status post incision and drainage. 2. Severe pain. 3. History of asthma. 4. Peripheral neuropathy. 5. Diabetes mellitus, type 2. 6. History of VRE. 7. History of degenerative joint disease. 8. History of bipolar and schizophrenia. 9. Obesity with body mass index of 32. 10.FULL CODE. RECOMMENDATIONS AND DISCUSSION: I recommend to continue current medications, continue with symptomatic treatment. Continue the broad-spectrum IV antibiotics. Cultures are negative so far. Await final culture report. Otherwise, continue the empiric antibiotics. Dr. Bradley will follow. MMODL / IJN: [id number] /
[2021-08-27] MEDS: buPROPion XL 150 MG TAB.ER.24H PO SCH (17:46)
[2021-08-27 21:00] LABS: Glucose,Whole Blood 142 mg/dL (75-99)
[2021-08-27] MEDS: MONTELUKAST 10 MG TAB PO SCH (21:23)
[2021-08-27] MEDS: ATORVASTATIN 40 MG TAB PO SCH (21:23)
[2021-08-27] MEDS: ARIPiprazole 15 MG TAB PO SCH (21:43)
[2021-08-28] MEDS: HYDROcodone/APAP 5-325MG 1 EACH TAB PO PRN (01:43)
[2021-08-28] MEDS: LACTATED RINGERS 1,000 ML IV SCH ×3 (04:30→17:41)
[2021-08-28] MEDS ORDERED: VANCOMYCIN TROUGH DUE 1 EACH MISC MISCELLANE ONE (05:00)
[2021-08-28 06:29] LABS: African American GFR (CKD) >90 (>60 ml/min/1.73 sqM); Non-African American GFR(CKD) >90 (>60 ml/min/1.73 sqM)
[2021-08-28 06:56] LABS: Glucose,Whole Blood 126 mg/dL (75-99)
[2021-08-28] MEDS: INSULIN ASPART (NovoLOG) 100 UNIT/ML VIAL SQ SCH ×4 (07:51→21:35)
--- NOTE | 2021-08-28 08:13 | P.PN ---
Subjective Progress Note Date: 08/28/21 Principal diagnosis: Foot ulcer secondary to Charcot foot This is a continue present 60-year-old black female who is essentially admitted for cellulitis and foot ulcer. Underlying history of Charcot foot with schizophrenia which is been stable. No voiding symptoms. No fever. Minimal pain is stated. Objective - Vital Signs Vital signs: Vital Signs Temp 97.8 F 08/28/21 08:02 Pulse 65 08/28/21 08:02 Resp 16 08/28/21 08:02 BP 148/87 08/28/21 08:02 Pulse Ox 97 08/28/21 08:02 Intake & Output 08/27/21 08/28/21 08/28/21 18:59 06:59 18:59 Other: # Voids 3 1 # Bowel Movements 0 - Constitutional General appearance: Present: obese - EENT Eyes: Absent: abnormal pupil - Neck Neck: Absent: lymphadenopathy - Respiratory Respiratory: bilateral: CTA - Cardiovascular Rhythm: regular Heart sounds: normal: S1, S2 Abnormal Heart Sounds: Absent: S3 Gallop - Gastrointestinal General gastrointestinal: Present: soft. Absent: tenderness - Integumentary Integumentary Comment(s): Drainage area looks appropriate. Integumentary: Present: cellulitis, ulcer - Labs CBC & Chem 7: 08/27/21 06:48 08/28/21 05:30 Labs: Abnormal Lab Results - Last 24 Hours (Table) 08/27/21 08/27/21 08/27/21 Range/Units 06:48 11:35 20:58 Hgb 11.6 L (12.0-15.0) g/dL Hct 36.4 L (37.2-46.3) % MCHC 31.9 L (32.0-37.0) g/dL POC Glucose (mg/dL) 179 H 142 H (75-99) mg/dL 08/28/21 Range/Units 06:55 Hgb (12.0-15.0) g/dL Hct (37.2-46.3) % MCHC (32.0-37.0) g/dL POC Glucose (mg/dL) 126 H (75-99) mg/dL Microbiology - Last 24 Hours (Table) 08/27/21 10:46 Gram Stain - Preliminary Foot - Left Wound Culture - Preliminary 08/26/21 16:37 Blood Culture - Preliminary Blood No Growth after 24 hours 08/26/21 16:37 Blood Culture - Preliminary Blood No Growth after 24 hours 08/27/21 10:46 Anaerobic Culture - Preliminary Foot - Left Assessment and Plan (1) Cellulitis Current Visit: Yes Status: Acute Code(s): L03.90 - CELLULITIS, UNSPECIFIED SNOMED Code(s): 229845551 (2) Ulcer Current Visit: Yes Status: Acute Code(s): XOJ0120 - SNOMED Code(s): 354624960 (3) Diabetic foot ulcer associated with secondary diabetes mellitus Current Visit: No Status: Acute Code(s): E08.621 - DIABETES MELLITUS DUE TO UNDERLYING CONDITION W FOOT ULCER SNOMED Code(s): 511490117 Plan: Appreciate infectious disease and surgical input. We will go ahead and continue to follow. Diabetic shoes have been instituted for the patient over the last several years. Prognosis is guarded secondary to the shape of her foot. We will continue to follow. Check CBC and CMP in a.m.
--- NOTE | 2021-08-28 08:40 | P.CONS ---
History of Present Illness - Reason for Consult Consult date: 08/27/21 left foot abscess Requesting physician: Davy Rivas - Chief Complaint left foot ulcer and draiange x week - History of Present Illness History of present illness : Patient is 60-year-old -[place] female with a past medical history significant for diabetes mellitus patient did have a history of foot deformity of the left foot and apparently the patient have history of to procedure of the foot with placement of the hardware and attempt to correct the bony deformity patient presenting to the [facility] ER last evening for evaluation of a drainage and ulceration on the plantar aspect of the left foot patient does not have pruritus which is black however the foot started getting swell and draining patient to have diabetic neuropathy denies any pain to the left foot area patient did have some chills but denies high- grade fever and did not have any fever on presentation to the hospital patient did have a normal white count creatinine was normal valles PCR was negative patient did have a x-ray of the foot no signs of osteomyelitis patient did have a CT of the foot previous fusion surgery elongated fluid collection on the plantar aspect of the midfoot could relate to abscess subcutaneous edema around the foot patient has been evaluated by vascular surgery and did have a drainage of the left foot abscess with concern for the wound tracking down to the hardware patient has been started on vancomycin and Zosyn subsequently continued on the vancomycin infectious disease was consulted for further management of antibiotic therapy Review of system: CONSTITUTIONAL: Positive for weakness denies high-grade fever. EYES: No complaint. ENT: No complaint. RESPIRATORY: No complaint. CARDIOVASCULAR: No complaint. GENITOURINARY: No complaint. GASTROINTESTINAL: No complaint. MUSCULOSKELETAL: As per history of present illness INTEGUMENTARY: No complaint. PSYCHOLOGIC: No complaint. ENDOCRINE: No complaint. NEUROLOGIC: No complaint. Past medical history : Reviewed, documented below Past surgical history : Reviewed, documented below Social history: Reviewed, documented below Medications: Reviewed, as documented below EXAMINATION: Vital sigans= Reviewed and documented below GENERAL DESCRIPTION: Middle-aged female lying in bed, no distress. No tachypnea or accessory muscle of respiration use. HEENT: Shows Pallor , no scleral icterus. Oral mucous membrane is dry. NECK: Trachea central, no thyromegaly. LUNGS: Unlabored breathing. Clear to auscultation anteriorly. No wheeze or crackle. HEART: S1, S2, regular rate and rhythm. ABDOMEN: Soft, no tenderness , guarding or rigidity EXTREMITIES: Left foot is still stressed after drainage of the abscess and was not opened. SKIN: No rash, no masses palpable. NEUROLOGICAL: The patient is awake, alert, oriented x3, mood and affect normal. LABS AND RADIOLOGY: Reviewed results see below Assessment : Patient presented to hospital with the left foot swelling drainage in this patient who did have history of Charcot deformity and the patient did have a surgery for correction of her deformity with underlying hardware now with evidence of an abscess and apparently has been tracking down to the hardware high clinical suspicion for deep infection and will need to cover for the polymi crobial denis usually associated with diabetic foot infection Plan: 1-Zosyn 3.375 g every 8 hours 2-discontinue vancomycin 3-check inflammatory markers We will follow on clinical condition and cultures to further adjust medication if needed Thank you for this consultation we will follow the patient along with you Past Medical History Past Medical History: Asthma, Diabetes Mellitus, Skin Disorder Additional Past Medical History / Comment(s): on atorvastatin but state cholesterol not elevated History of Any Multi-Drug Resistant Organisms: VRE Year Discovered:: 05/30/16 MDRO Source:: left toe Past Surgical History: Orthopedic Surgery Additional Past Surgical History / Comment(s): left foot surgery, left knee arthroplasty Past Anesthesia/Blood Transfusion Reactions: No Reported Reaction Additional Past Anesthesia/Blood Transfusion Reaction / Comm: no previous blood transfusion Past Psychological History: Bipolar, Schizophrenia Smoking Status: Never smoker Past Alcohol Use History: None Reported Past Drug Use History: None Reported - Past Family History Mother Family Medical History: Cancer Additional Family Medical History / Comment(s): breast Sister(s) Family Medical History: Cancer Additional Family Medical History / Comment(s): kidney and liver Medications and Allergies Home Medications Medication Instructions Recorded Confirmed Type Albuterol Sulfate [Proair Hfa] 2 puff INHALATION RT-Q6H PRN 04/10/16 08/26/21 History Pregabalin [Lyrica] 100 mg PO BID 02/11/17 08/26/21 History buPROPion HCL [Wellbutrin XL] 300 mg PO DAILY 11/26/18 08/26/21 History Dulaglutide [Trulicity] 1.5 mg SQ ZAMBRANO 11/27/18 08/26/21 History Hydrocodone/Acetaminophen [[place] 1 tab PO Q6H PRN 08/03/19 08/26/21 History 5-325] buPROPion HCL [Wellbutrin XL] 150 mg PO W/LUNCH 08/03/19 08/26/21 History lamoTRIgine [LaMICtal] 150 mg PO BID 08/03/19 08/26/21 History Atorvastatin [Lipitor] 40 mg PO HS 02/05/20 08/26/21 History Montelukast [Singulair] 10 mg PO HS 02/05/20 08/26/21 History Ketoconazole [Ketoconazole 2%] 1 applic TOPICAL BID 09/07/20 08/26/21 History SILVER sulfADIAZINE CREAM 1 applic TOPICAL BID 09/07/20 08/26/21 History [Silvadene Cream] ARIPiprazole [Abilify] 15 mg PO HS 08/26/21 08/26/21 History Diphenoxylate HCl/Atropine 1 - 2 tab PO QID PRN 08/26/21 08/26/21 History [Lomotil 2.5-0.025 mg Tablet] Insulin Glargine,Hum.rec.anlog 6 unit SQ W/BRKFST 08/26/21 08/26/21 History [Lantus Solostar Pen] Insulin Glargine,Hum.rec.anlog 10 unit SQ W/SUPPER 08/26/21 08/26/21 History [Lantus Solostar Pen] Allergies Allergy/AdvReac Type Severity Reaction Status Date / Time blackberry Allergy Rash/Hives Verified 08/26/21 17:33 blueberry Allergy Rash/Hives Verified 08/26/21 17:33 raspberry Allergy Rash/Hives Verified 08/26/21 17:33 strawberry Allergy Rash/Hives Verified 08/26/21 17:33 Physical Exam Vitals: Vital Signs Temp Pulse Pulse Pulse Resp BP BP 08/27/21 08:00 97.6 F 63 18 153/82 08/27/21 00:43 98.1 F 54 L 16 140/71 08/27/21 00:00 69 20 145/82 08/26/21 18:30 67 16 161/82 Pulse Ox 08/27/21 08:00 95 08/27/21 00:43 96 08/27/21 00:00 96 08/26/21 18:30 100 Intake and Output 08/27/21 08/27/21 08/27/21 06:59 14:59 22:59 Other: # Voids 2 Weight 101.151 kg Results CBC & Chem 7: 08/27/21 06:48 08/28/21 05:30 Labs: Abnormal Lab Results - Last 24 Hours (Table) 08/26/21 08/26/21 08/26/21 Range/Units 16:37 18:37 21:02 Hgb (12.0-15.0) g/dL Hct (37.2-46.3) % MCHC (32.0-37.0) g/dL POC Glucose (mg/dL) 120 H 109 H (75-99) mg/dL Total Protein 6.1 L (6.3-8.2) g/dL 08/27/21 08/27/21 Range/Units 06:48 11:35 Hgb 11.6 L (12.0-15.0) g/dL Hct 36.4 L (37.2-46.3) % MCHC 31.9 L (32.0-37.0) g/dL POC Glucose (mg/dL) 179 H (75-99) mg/dL Total Protein (6.3-8.2) g/dL
[2021-08-28] MEDS: PREGABALIN 100 MG CAP PO SCH ×2 (08:43→21:35)
[2021-08-28] MEDS: PANTOPRAZOLE 40 MG TABLET PO SCH (08:43)
[2021-08-28] MEDS: INSULIN DETEMIR (LEVEMIR) 100 UNIT/ML SYR SQ SCH ×2 (08:43→18:13)
[2021-08-28] MEDS: lamoTRIgine 100 MG TAB PO SCH ×2 (08:43→21:34)
[2021-08-28] MEDS: buPROPion XL 300 MG TAB.ER.24H PO SCH (08:43)
[2021-08-28] MEDS: CLOTRIMAZOLE 1% CREAM 30 GM TUBE TOPICAL SCH ×2 (08:45→23:18)
[2021-08-28] MEDS: HEPARIN SODIUM,PORCINE/PF 5,000 UNIT/0.5 ML SYRINGE SQ SCH ×2 (08:46→21:35)
[2021-08-28] MEDS: buPROPion XL 150 MG TAB.ER.24H PO SCH (08:54)
[2021-08-28] MEDS: PIPERACILLIN-TAZOBACTAM 3.375 GM in SODIUM CHLORIDE 0.9% 100 ML IVPB SCH ×2 (08:56→16:06)
[2021-08-28] MEDS: VANCOMYCIN 1,750 MG in SODIUM CHLORIDE 0.9% 500 ML 500 ML IVPB SCH (09:01)
[2021-08-28 11:06] LABS: Basophils # (A) 0.06 X 10*3/uL (0.00-0.10); Basophils % (A) 0.9 %; Eosinophils # (A) 0.17 X 10*3/uL (0.04-0.35); Eosinophils % (A) 2.5 %; HGB 13.5 g/dL (12.0-15.0); Lymphocytes # (A) 1.68 X 10*3/uL (0.90-5.00); Lymphocytes % (A) 25.2 %; MCH 28.1 pg (27.0-32.0); MCHC 32.1 g/dL (32.0-37.0); MCV 87.3 fL (80.0-97.0); Mean Platelet Volume 10.7 fL (9.5-12.2); Monocytes # (A) 0.52 X 10*3/uL (0.20-1.00); Monocytes % (A) 7.8 %; Neutrophils # (A) 4.22 X 10*3/uL (1.80-7.70); Neutrophils % (A) 63.3 %; Platelet Count 256 X 10*3/uL (140-440); RBC 4.81 X 10*6/uL (4.10-5.20); RDW 13.2 % (11.5-14.5); WBC 6.67 X 10*3/uL (4.50-10.00)
[2021-08-28 11:37] LABS: Glucose,Whole Blood 194 mg/dL (75-99)
--- NOTE | 2021-08-28 11:47 | P.PN ---
Subjective Progress Note Date: 08/28/21 60-year-old female who presented to the emergency department with pain in her left foot with occasional drainage from the plantar surface. Patient has a history of Charcot foot and has undergone 2 procedures in the in the past with placement of hardware and attempt to correct bony deformity. Patient states the last surgery was in 2012. Yesterday she underwent a bedside I&D with cultures. Cultures are currently pending. States that she does have pain still in the plantar surface of the foot only with palpation. Patient been afebrile. WBC 6.6. Objective - Vital Signs Vital signs: Vital Signs Temp 97.8 F 08/28/21 08:02 Pulse 65 08/28/21 08:02 Resp 16 08/28/21 08:30 BP 148/87 08/28/21 08:02 Pulse Ox 97 08/28/21 08:02 Intake & Output 08/27/21 08/28/21 08/28/21 18:59 06:59 18:59 Intake Total 200 Balance 200 Intake: Oral 200 Other: # Voids 3 1 1 # Bowel Movements 0 - Exam General appearance: The patient is alert, oriented, in no acute distress. HET: Head is normocephalic and atraumatic. Neck: Supple without lymphadenopathy. Trachea midline. Extremities: Normal skin color and turgor. Left foot deformity. Left foot I&D site on the plantar surface without any drainage, no redness or bowel odor. Tender to palpation. Neurological: No focal deficits. Strength and sensation are grossly intact. - Labs CBC & Chem 7: 08/28/21 05:30 08/28/21 05:30 Labs: Abnormal Lab Results - Last 24 Hours (Table) 08/27/21 08/27/21 08/28/21 Range/Units 11:35 20:58 06:55 POC Glucose (mg/dL) 179 H 142 H 126 H (75-99) mg/dL Microbiology - Last 24 Hours (Table) 08/27/21 10:46 Gram Stain - Preliminary Foot - Left Wound Culture - Preliminary Gram Neg Bacilli 08/26/21 16:37 Blood Culture - Preliminary Blood No Growth after 24 hours 08/26/21 16:37 Blood Culture - Preliminary Blood No Growth after 24 hours 08/27/21 10:46 Anaerobic Culture - Preliminary Foot - Left Assessment and Plan Assessment: 1. Abscess of the plantar surface of the left foot status post I&D 2. Left Charcot foot status post previous surgery Plan: 1. Continue current IV antibiotics 2. Daily dressing changes with 4 x 4 and Kerlix 3. Will consult orthopedics for further evaluation and possible abscess/infection related to hardware The impression and plan of care has been dictated as directed. I performed a history and examination of this patient, discussed the same with the dictator. I agree with the dictator's note ,documented as a scribe. Any additional findings or plans will be noted.
[2021-08-28 11:54] VITALS: BMI 32.0
[2021-08-28 16:50] LABS: Glucose,Whole Blood 159 mg/dL (75-99)
--- NOTE | 2021-08-28 18:14 | PN ---
PROGRESS NOTE DATE OF SERVICE: 08/28/2021 REASON FOR FOLLOWUP: Left foot abscess. INTERVAL HISTORY: The patient is afebrile. The patient is currently breathing comfortably. The patient denies having any chest pain. No shortness of breath or cough. No nausea, vomiting, abdominal pain or diarrhea. PHYSICAL EXAMINATION: Blood pressure 132/71 with a pulse of 67, temperature 97.9. General description is a middle-aged female up in the bed in no distress. Respiratory system: Unlabored breathing. Clear to auscultation anteriorly. Heart S1, S2. Regular rate and rhythm. Abdomen soft, no tenderness. The left foot did have superficial wound. No drainage. LABS: Wound culture showing Gram-negative bacilli. DIAGNOSTIC IMPRESSION AND PLAN: Patient with left foot abscess status post drainage, culture with gram-negative antibiotic with Zosyn. Will wait for final ID ( ) discharge antibiotics. Continue supportive care. MMODL / IJN: [id number] /
[2021-08-28 20:53] LABS: Glucose,Whole Blood 170 mg/dL (75-99)
[2021-08-28] MEDS: MONTELUKAST 10 MG TAB PO SCH (21:34)
[2021-08-28] MEDS: ARIPiprazole 15 MG TAB PO SCH (21:35)
[2021-08-28] MEDS: ATORVASTATIN 40 MG TAB PO SCH (21:35)
[2021-08-29] MEDS: PIPERACILLIN-TAZOBACTAM 3.375 GM in SODIUM CHLORIDE 0.9% 100 ML IVPB SCH ×3 (00:54→16:08)
[2021-08-29] MEDS: HYDROcodone/APAP 5-325MG 1 EACH TAB PO PRN ×3 (03:06→16:07)
[2021-08-29] MEDS: LACTATED RINGERS 1,000 ML IV SCH ×3 (05:26→21:45)
[2021-08-29 07:21] LABS: Glucose,Whole Blood 109 mg/dL (75-99)
[2021-08-29] MEDS: INSULIN ASPART (NovoLOG) 100 UNIT/ML VIAL SQ SCH ×4 (07:30→20:43)
[2021-08-29 09:20] LABS: HCT 40.1 % (37.2-46.3); HGB 13.2 g/dL (12.0-15.0); MCH 28.8 pg (27.0-32.0); MCHC 32.9 g/dL (32.0-37.0); MCV 87.4 fL (80.0-97.0); Mean Platelet Volume 10.3 fL (9.5-12.2); Platelet Count 247 X 10*3/uL (140-440); RBC 4.59 X 10*6/uL (4.10-5.20); RDW 13.3 % (11.5-14.5); WBC 6.97 X 10*3/uL (4.50-10.00)
[2021-08-29] MEDS: PREGABALIN 100 MG CAP PO SCH ×2 (10:12→20:34)
[2021-08-29] MEDS: PANTOPRAZOLE 40 MG TABLET PO SCH (10:12)
[2021-08-29] MEDS: lamoTRIgine 100 MG TAB PO SCH ×2 (10:13→20:34)
[2021-08-29] MEDS: buPROPion XL 300 MG TAB.ER.24H PO SCH (10:17)
[2021-08-29] MEDS: INSULIN DETEMIR (LEVEMIR) 100 UNIT/ML SYR SQ SCH ×2 (10:24→18:13)
[2021-08-29] MEDS: HEPARIN SODIUM,PORCINE/PF 5,000 UNIT/0.5 ML SYRINGE SQ SCH ×2 (10:26→23:08)
[2021-08-29] MEDS: CLOTRIMAZOLE 1% CREAM 30 GM TUBE TOPICAL SCH ×2 (10:27→20:36)
[2021-08-29 11:34] LABS: Glucose,Whole Blood 228 mg/dL (75-99)
[2021-08-29] MEDS: buPROPion XL 150 MG TAB.ER.24H PO SCH (12:04)
--- NOTE | 2021-08-29 13:12 | PN ---
PROGRESS NOTE DATE OF SERVICE: 08/29/2021 REASON FOR FOLLOWUP: Left foot plantar abscess. INTERVAL HISTORY: The patient is afebrile. The patient is breathing comfortably. Denies having any chest pain, shortness of breath or cough. No vomiting. No abdominal pain or pain to the left foot. PHYSICAL EXAMINATION: Blood pressure 133/85 with a pulse of 64, temperature 97.7, he is 94% on room air. General description is a middle-aged female up in the bed in no distress. Respiratory system: Unlabored breathing, clear to auscultation anteriorly. Heart S1, S2. Regular rate and rhythm. Abdomen soft, no tenderness. Left foot is currently dressed. No obvious drainage on the dressing. LABS: White count 6.97, creatinine 0.60. Local culture finalized with Klebsiella pneumoniae. DIAGNOSTIC IMPRESSION AND PLAN: Patient with left foot plantar abscess, superficial. CT was reviewed with Dr. Saucedo with no evidence of any deep collection or extension down to the bone or hardware. The patient did have improvement with Zosyn. Transition to oral Cipro 500 mg twice a day for 10 days and close outpatient followup. Advised offloading to prevent any further worsening. MMODL / IJN: [id number] /
[2021-08-29 14:00] LABS: Erythrocyte Sedimentation Rate 8 mm/Hr (0-30)
--- NOTE | 2021-08-29 15:00 | P.CNOR ---
History of Present Illness - [facility] Consult date: 08/29/21 History of present illness: This patient is a 60- year old female with a past medical history of diabetes, asthma that presented to [facility] on 08/26/21 with complaints of right foot ulcers, drainage. Patient has a history of two surgeries on the right foot, performed by Dr. Donovan in 2012. Patient states the last time she followed up with Dr. Donovan was a few years ago. Patient states she began noticing ulceration to the plantar aspect of the right foot about 4 weeks ago. She initially presented for evaluation to Dr. Parks. She states she noticed the ulceration getting worse, therefore she presented to the [facility] emergency department. X-rays and CT scan of the right foot were obtained, showing a possible abscess along the plantar aspect of the right foot. Patient has been afebrile. Patient was admitted under the care of internal medicine with consults placed to infectious disease, vascular surgery, and orthopedic surgery. Patient underwent a bedside I&D yesterday with Dr. Bean, and there was no e vidence of deep extension of the abscess, per operative note. Patient is seen and examined beside. She states her foot pain has improved since I&D was performed. Nursing has been changing her dressing daily. Patient states she has an appointment with the wound care center next week. Patient states she otherwise feels well, she denies fevers, chills, nausea, vomiting. She is tolerating her diet well. Vital signs stable. Past Medical History Past Medical History: Asthma, Diabetes Mellitus, Skin Disorder Additional Past Medical History / Comment(s): on atorvastatin but state cholesterol not elevated History of Any Multi-Drug Resistant Organisms: VRE Year Discovered:: 05/30/16 MDRO Source:: left toe Past Surgical History: Orthopedic Surgery Additional Past Surgical History / Comment(s): left foot surgery, left knee arthroplasty Past Anesthesia/Blood Transfusion Reactions: No Reported Reaction Additional Past Anesthesia/Blood Transfusion Reaction / Comm: no previous blood transfusion Past Psychological History: Bipolar, Schizophrenia Smoking Status: Never smoker Past Alcohol Use History: None Reported Past Drug Use History: None Reported - Past Family History Mother Family Medical History: Cancer Additional Family Medical History / Comment(s): breast Sister(s) Family Medical History: Cancer Additional Family Medical History / Comment(s): kidney and liver Medications and Allergies Home Medications Medication Instructions Recorded Confirmed Type Albuterol Sulfate [Proair Hfa] 2 puff INHALATION RT-Q6H PRN 04/10/16 08/26/21 History Pregabalin [Lyrica] 100 mg PO BID 02/11/17 08/26/21 History buPROPion HCL [Wellbutrin XL] 300 mg PO DAILY 11/26/18 08/26/21 History Dulaglutide [Trulicity] 1.5 mg SQ ZAMBRANO 11/27/18 08/26/21 History Hydrocodone/Acetaminophen [[place] 1 tab PO Q6H PRN 08/03/19 08/26/21 History 5-325] buPROPion HCL [Wellbutrin XL] 150 mg PO W/LUNCH 08/03/19 08/26/21 History lamoTRIgine [LaMICtal] 150 mg PO BID 08/03/19 08/26/21 History Atorvastatin [Lipitor] 40 mg PO HS 02/05/20 08/26/21 History Montelukast [Singulair] 10 mg PO HS 02/05/20 08/26/21 History Ketoconazole [Ketoconazole 2%] 1 applic TOPICAL BID 09/07/20 08/26/21 History SILVER sulfADIAZINE CREAM 1 applic TOPICAL BID 09/07/20 08/26/21 History [Silvadene Cream] ARIPiprazole [Abilify] 15 mg PO HS 08/26/21 08/26/21 History Diphenoxylate HCl/Atropine 1 - 2 tab PO QID PRN 08/26/21 08/26/21 History [Lomotil 2.5-0.025 mg Tablet] Insulin Glargine,Hum.rec.anlog 6 unit SQ W/BRKFST 08/26/21 08/26/21 History [Lantus Solostar Pen] Insulin Glargine,Hum.rec.anlog 10 unit SQ W/SUPPER 08/26/21 08/26/21 History [Lantus Solostar Pen] Allergies Allergy/AdvReac Type Severity Reaction Status Date / Time blackberry Allergy Rash/Hives Verified 08/26/21 17:33 blueberry Allergy Rash/Hives Verified 08/26/21 17:33 raspberry Allergy Rash/Hives Verified 08/26/21 17:33 strawberry Allergy Rash/Hives Verified 08/26/21 17:33 Physical Examination On examination, the patient is sitting up in bed in no apparent distress. She is alert and orientated 3. Focused examination of the right foot is conducted. On inspection of the right foot, there is an incision at the medial aspect of the plantar foot. There is no surrounding erythema. No active drainage. There is no pain with palpation of the calf, ankle, dorsal foot. Patient has good strength and range of motion of the right ankle and foot. Motor and sensory function function is intact of the right lower extremity, decreased sensation distally due to neuropathy. The right foot is warm and well perfused, dorsalis pedis pulse +2. Calf is soft and nontender to palpation. No evidence of DVT. Results Right foot x-ray 08/26/21: Hardware present from prior subtalar and medial col umn fusion. Evidence of broken screws. No acute fractures. No evidence of osteomyelitis. Right foot CT scan 08/26/21: Elongated fluid collection plantar aspect of right foot, related to abscess. No evidence of deep infection or communication with hardware. - Labs Labs: Abnormal Lab Results - Last 24 Hours (Table) 08/28/21 08/28/21 08/28/21 Range/Units 11:37 16:48 20:50 POC Glucose (mg/dL) 194 H 159 H 170 H (75-99) mg/dL 08/29/21 Range/Units 07:17 POC Glucose (mg/dL) 109 H (75-99) mg/dL Microbiology - Last 24 Hours (Table) 08/26/21 16:37 Blood Culture - Preliminary Blood No Growth after 48 hours 08/26/21 16:37 Blood Culture - Preliminary Blood No Growth after 48 hours 08/27/21 10:46 Gram Stain - Preliminary Foot - Left Wound Culture - Preliminary Gram Neg Bacilli H & H 08/26/21 08/27/21 08/28/21 Range/Units 16:37 06:48 05:30 Hgb 12.8 11.6 L 13.5 (11.4-16.0) gm/dL Hct 39.4 36.4 L 42.0 (34.0-46.0) % 08/29/21 Range/Units 05:49 Hgb 13.2 (11.4-16.0) gm/dL Hct 40.1 (34.0-46.0) % Result Diagrams: 08/29/21 05:49 08/28/21 05:30 Assessment and Plan Assessment: Diabetic foot ulcer. Right plantar abscess, status-post bedside I&D by Dr. Bean 08/27/21. History of right foot fusion in [address] Donovan. Plan: - The patient and her right foot x-rays, CT scan were reviewed with Dr. Pamela farias, as well as Dr. Galdamez. There is no evidence of deep infection communicating with hardware on her imaging. We have no plans for surgical intervention at this time. - Recommend local wound care, IV antibiotics under the discretion of infectious disease. Recommend follow-up at wound care center for continued management of diabetic ulcers. - We will follow patient peripherally and make recommendations as needed.
[2021-08-29 16:49] LABS: Glucose,Whole Blood 130 mg/dL (75-99)
[2021-08-29 20:30] LABS: Glucose,Whole Blood 105 mg/dL (75-99)
[2021-08-29] MEDS: MONTELUKAST 10 MG TAB PO SCH (20:34)
[2021-08-29] MEDS: ATORVASTATIN 40 MG TAB PO SCH (20:34)
[2021-08-29] MEDS: ARIPiprazole 15 MG TAB PO SCH (21:44)
--- NOTE | 2021-08-29 22:12 | P.PN ---
Subjective Principal diagnosis: Foot ulcer secondary to Charcot foot This is a continue present 60-year-old black female who is essentially admitted for cellulitis and foot ulcer. Underlying history of Charcot foot with schizophrenia which is been stable. No voiding symptoms. No fever. Minimal pain is stated. Objective - Vital Signs Vital signs: Vital Signs Temp 97.5 F L 08/29/21 20:00 Pulse 67 08/29/21 20:00 Resp 16 08/29/21 20:00 BP 117/76 08/29/21 20:00 Pulse Ox 95 08/29/21 20:00 Intake & Output 08/29/21 08/29/21 08/30/21 06:59 18:59 06:59 Other: # Voids 2 5 1 # Bowel Movements 0 - Labs CBC & Chem 7: 08/29/21 05:49 08/28/21 05:30 Labs: Abnormal Lab Results - Last 24 Hours (Table) 08/29/21 08/29/21 08/29/21 Range/Units 07:17 11:33 16:47 POC Glucose (mg/dL) 109 H 228 H 130 H (75-99) mg/dL 08/29/21 Range/Units 20:29 POC Glucose (mg/dL) 105 H (75-99) mg/dL Microbiology - Last 24 Hours (Table) 08/26/21 16:37 Blood Culture - Preliminary Blood No Growth after 72 hours 08/26/21 16:37 Blood Culture - Preliminary Blood No Growth after 72 hours 08/27/21 10:46 Anaerobic Culture - Preliminary Foot - Left 08/27/21 10:46 Gram Stain - Final Foot - Left Wound Culture - Final Klebsiella pneumoniae Assessment and Plan (1) Cellulitis Current Visit: Yes Status: Acute Code(s): L03.90 - CELLULITIS, UNSPECIFIED SNOMED Code(s): 155222539 (2) Ulcer Current Visit: Yes Status: Acute Code(s): KRP6937 - SNOMED Code(s): 067305342 (3) Diabetic foot ulcer associated with secondary diabetes mellitus Current Visit: No Status: Acute Code(s): E08.621 - DIABETES MELLITUS DUE TO UNDERLYING CONDITION W FOOT ULCER SNOMED Code(s): 395289316
[2021-08-30] MEDS: PIPERACILLIN-TAZOBACTAM 3.375 GM in SODIUM CHLORIDE 0.9% 100 ML IVPB SCH ×2 (00:05→08:28)
[2021-08-30] MEDS: LACTATED RINGERS 1,000 ML IV SCH ×2 (05:50→11:05)
[2021-08-30 07:16] LABS: Glucose,Whole Blood 113 mg/dL (75-99)
[2021-08-30 07:34] VITALS: BP 152/91; PULSE 67; RESP 18; TEMP 97.8
[2021-08-30] MEDS: INSULIN ASPART (NovoLOG) 100 UNIT/ML VIAL SQ SCH (08:01)
[2021-08-30] MEDS: PANTOPRAZOLE 40 MG TABLET PO SCH (08:26)
[2021-08-30] MEDS: INSULIN DETEMIR (LEVEMIR) 100 UNIT/ML SYR SQ SCH (08:27)
--- NOTE | 2021-08-30 08:43 | P.DS ---
Providers Date of admission: 08/26/21 18:26 Attending physician: Fredrick Bradley Consults: 08/26/21 18:58 Consult Physician Routine Consulting Provider: Tomas Mayo Consult Reason/Comments: diabetic foot, ? abscess Do you want consulting provider notified?: Yes Consult Physician Routine Consulting Provider: Jm Lynn Consult Reason/Comments: diabetic foot Do you want consulting provider notified?: Yes 08/28/21 11:48 Consult Physician Routine Consulting Provider: Agustin Galdamez Consult Reason/Comments: Charcot foot, evaluate for possible hardware infection Do you want consulting provider notified?: Yes Primary care physician: Fredrick Bradley - Discharge Diagnosis(es) (1) Cellulitis Current Visit: Yes Status: Acute (2) Ulcer Current Visit: Yes Status: Acute (3) Diabetic foot ulcer associated with secondary diabetes mellitus Current Visit: No Status: Acute Hospital Course: This discharge summary a patient with diabetic foot abscess/ulcer with cellulitis. The patient has Charcot foot and there was concern about bony involvement. The lesion was drained culture was negative and there was no bone involvement after orthopedic evaluation. The patient was placed on appropriate antibody treatment and as improved. She will be placed on appropriate outpatient antibiotic treatment with pain control. She is to follow-up with me in about 5-7 days the wound is now stabilizing Patient Condition at Discharge: Good Plan - Discharge Summary Discharge Rx Participant: Yes New Discharge Prescriptions: New HYDROcodone/APAP 5-325MG [Bono 5-325] 1 each PO Q4HR PRN tab PRN Reason: Moderate Pain Ciprofloxacin HCl [Cipro] 500 mg PO BID 10 Days #20 tab Continue Albuterol Sulfate [Proair Hfa] 2 puff INHALATION RT-Q6H PRN PRN Reason: Shortness Of Breath Pregabalin [Lyrica] 100 mg PO BID buPROPion HCL [Wellbutrin XL] 300 mg PO DAILY Dulaglutide [Trulicity] 1.5 mg SQ ZAMBRANO Hydrocodone/Acetaminophen [Bono 5-325] 1 tab PO Q6H PRN PRN Reason: Pain lamoTRIgine [LaMICtal] 150 mg PO BID buPROPion HCL [Wellbutrin XL] 150 mg PO W/LUNCH Montelukast [Singulair] 10 mg PO HS Atorvastatin [Lipitor] 40 mg PO HS SILVER sulfADIAZINE CREAM [Silvadene Cream] 1 applic TOPICAL BID Ketoconazole [Ketoconazole 2%] 1 applic TOPICAL BID Diphenoxylate HCl/Atropine [Lomotil 2.5-0.025 mg Tablet] 1 - 2 tab PO QID PRN PRN Reason: Diarrhea ARIPiprazole [Abilify] 15 mg PO HS Insulin Glargine,Hum.rec.anlog [Lantus Solostar Pen] 10 unit SQ W/SUPPER Insulin Glargine,Hum.rec.anlog [Lantus Solostar Pen] 6 unit SQ W/BRKFST Discharge Medication List Albuterol Sulfate [Proair Hfa] 2 puff INHALATION RT-Q6H PRN 04/10/16 [History] Pregabalin [Lyrica] 100 mg PO BID 02/11/17 [History] buPROPion HCL [Wellbutrin XL] 300 mg PO DAILY 11/26/18 [History] Dulaglutide [Trulicity] 1.5 mg SQ ZAMBRANO 11/27/18 [History] Hydrocodone/Acetaminophen [Bono 5-325] 1 tab PO Q6H PRN 08/03/19 [History] buPROPion HCL [Wellbutrin XL] 150 mg PO W/LUNCH 08/03/19 [History] lamoTRIgine [LaMICtal] 150 mg PO BID 08/03/19 [History] Atorvastatin [Lipitor] 40 mg PO HS 02/05/20 [History] Montelukast [Singulair] 10 mg PO HS 02/05/20 [History] Ketoconazole [Ketoconazole 2%] 1 applic TOPICAL BID 09/07/20 [History] SILVER sulfADIAZINE CREAM [Silvadene Cream] 1 applic TOPICAL BID 09/07/20 [History] ARIPiprazole [Abilify] 15 mg PO HS 08/26/21 [History] Diphenoxylate HCl/Atropine [Lomotil 2.5-0.025 mg Tablet] 1 - 2 tab PO QID PRN 08/26/21 [History] Insulin Glargine,Hum.rec.anlog [Lantus Solostar Pen] 6 unit SQ W/BRKFST 08/26/21 [History] Insulin Glargine,Hum.rec.anlog [Lantus Solostar Pen] 10 unit SQ W/SUPPER [History] HYDROcodone/APAP 5-325MG [Bono 5-325] 1 each PO Q4HR PRN tab 08/29/21 [Rx] Ciprofloxacin HCl [Cipro] 500 mg PO BID 10 Days #20 tab 08/30/21 [Rx] Follow up Appointment(s)/Referral(s): Fredrick Bradley MD [Primary Care Provider] - 1-2 days Koby Bean DO [Doctor of Osteopathic Medicine] - 1 Week [facility], [NON-STAFF] - Jm Lynn MD [STAFF PHYSICIAN] - As Needed Patient Instructions/Handouts: Foot Care for People with Diabetes (DC), Diabetic Foot Ulcers (DC) Activity/Diet/Wound Care/Special Instructions: Discharge Disposition: HOME SELF-CARE
[2021-08-30] MEDS: PREGABALIN 100 MG CAP PO SCH (10:04)
[2021-08-30] MEDS: buPROPion XL 300 MG TAB.ER.24H PO SCH (10:04)
[2021-08-30] MEDS: lamoTRIgine 100 MG TAB PO SCH (10:04)
[2021-08-30] MEDS: CLOTRIMAZOLE 1% CREAM 30 GM TUBE TOPICAL SCH (10:06)
[2021-08-30] MEDS: HEPARIN SODIUM,PORCINE/PF 5,000 UNIT/0.5 ML SYRINGE SQ SCH (10:07)
[2021-08-30 11:34] LABS: Glucose,Whole Blood 174 mg/dL (75-99)
--- NOTE | 2021-08-30 12:46 | P.PN ---
Subjective Progress Note Date: 08/30/21 Patient seen and examined up at the bedside. Pain improved to left foot. Patient was seen by orthopedics who do not see any evidence of infected hardware. Cultures came back as Klebsiella, infectious disease following. Patient is being discharged today. She's been afebrile. Recommendations for outpatient follow-up with wound care clinic. Objective - Vital Signs Vital signs: Vital Signs Temp 97.8 F 08/30/21 07:31 Pulse 67 08/30/21 07:31 Resp 18 08/30/21 07:31 BP 152/91 08/30/21 07:31 Pulse Ox 95 08/30/21 07:31 Intake & Output 08/29/21 08/30/21 08/30/21 18:59 06:59 18:59 Other: # Voids 5 1 - Exam General appearance: The patient is alert, oriented, in no acute distress. HET: Head is normocephalic and atraumatic. Neck: Supple without lymphadenopathy. Trachea midline. Extremities: Normal skin color and turgor. Left foot deformity. Surgical boot to left foot. Neurological: No focal deficits. Strength and sensation are grossly intact. - Labs CBC & Chem 7: 08/29/21 05:49 08/28/21 05:30 Labs: Abnormal Lab Results - Last 24 Hours (Table) 08/29/21 08/29/21 08/30/21 Range/Units 16:47 20:29 07:14 POC Glucose (mg/dL) 130 H 105 H 113 H (75-99) mg/dL 08/30/21 Range/Units 11:29 POC Glucose (mg/dL) 174 H (75-99) mg/dL Microbiology - Last 24 Hours (Table) 08/26/21 16:37 Blood Culture - Preliminary Blood No Growth after 72 hours 08/26/21 16:37 Blood Culture - Preliminary Blood No Growth after 72 hours 08/27/21 10:46 Anaerobic Culture - Preliminary Foot - Left 08/27/21 10:46 Gram Stain - Final Foot - Left Wound Culture - Final Klebsiella pneumoniae Assessment and Plan Assessment: 1. Abscess of the plantar surface of the left foot status post I&D 2. Left Charcot foot status post previous surgery Plan: 1. Continue antibiotic per recommendations from infectious disease 2. Orthopedics consulted, no plans for any surgical intervention. Patient to follow-up as needed 3. Follow-up with out patient wound care clinic The impression and plan of care has been dictated as directed. I performed a history and examination of this patient, discussed the same with the dictator. I agree with the dictator's note ,documented as a scribe. Any additional findings or plans will be noted.
== END 2021-08-30 11:55 | disposition home health service (06) | DRG 638 ==
LOC: EC 14:40 → 4SSUR 18:26
PROVIDERS: ADMIT Family Medicine; ATTEND Family Medicine
PROC: 0H9NXZZ Drainage of Left Foot Skin, External Approach (ICD-10-PCS; principal; 2021-08-27)
DX: E11.621 Type 2 diabetes mellitus with foot ulcer (principal); L02.612 Cutaneous abscess of left foot; L03.116 Cellulitis of left lower limb; E11.40 Type 2 diabetes mellitus with diabetic neuropathy, unspecified; E11.610 Type 2 diabetes mellitus with diabetic neuropathic arthropathy; E11.628 Type 2 diabetes mellitus with other skin complications; E66.9 Obesity, unspecified; F20.9 Schizophrenia, unspecified; F31.9 Bipolar disorder, unspecified; J45.909 Unspecified asthma, uncomplicated; L97.529 Non-pressure chronic ulcer of other part of left foot with unspecified severity; Z68.32 Body mass index [BMI] 32.0-32.9, adult; Z79.899 Other long term (current) drug therapy; Z96.652 Presence of left artificial knee joint; Z20.822 Contact with and (suspected) exposure to COVID-19
CPT/HCPCS: 36415; 80048; 80053; 80202; 82565; 83605; 85025; 85027; 85652; 86140; 87040; 87070; 87075; 87077; 87186; 87205; 87635; 96374; 99284

== ENCOUNTER → 2021-09-19 | Outpatient (CLI) | payer MEDICARE, OTHER ==
--- NOTE | 2021-09-19 10:47 | US ---
LOWER EXTREMITY VENOUS INSUFFICIENCY CLINICAL HISTORY: L97.512 NON PRESSURE CHR ULCER. Left foot non healing wound x 1 month SIDE PERFORMED: Bilateral Comparison: Bilateral venous ultrasound August 13, 2019 1) Color flow is present and patency is documented in the following vessels. No DVT or SVT is noted . Common Femoral Vein Deep Femoral Vein Femoral Vein Popliteal Vein Proximal Calf Veins Greater Saph Vein Upper Small Saph Vein 2) There is venous reflux noted at the following venous levels: none Satisfactory color flow, phasicity, and compressibility is identified bilaterally. IMPRESSION: No ultrasound evidence for acute DVT in either lower extremity.
== END | disposition home or self-care (01) ==
LOC: RADUSWWP 08:49
PROVIDERS: ATTEND Family Medicine
DX: I87.2 Venous insufficiency (chronic) (peripheral) (principal); L97.512 Non-pressure chronic ulcer of other part of right foot with fat layer exposed
CPT/HCPCS: 93923; 93970

== ENCOUNTER 2021-11-17 18:09 | Emergency (ER) | payer MEDICARE, OTHER ==
[2021-11-17 18:21] VITALS: RESP 18; TEMP 98.6
[2021-11-17] MEDS ORDERED: SODIUM CHLORIDE 0.9% 500 ML 500 ML IV ONE (19:15)
[2021-11-17] MEDS ORDERED: DOPamine DRIP 800 MG in DEXTROSE/WATER 1 250ML.BAG IV ONE (19:16)
[2021-11-17 20:23] LABS: Basophils % (A) 0 %; Eosinophils # (A) 0.1 k/uL (0-0.7); Eosinophils % (A) 1 %; HCT 41.1 % (34.0-46.0); HGB 13.4 gm/dL (11.4-16.0); Lymphocytes # (A) 1.5 k/uL (1.0-4.8); Lymphocytes % (A) 17 %; MCH 28.8 pg (25.0-35.0); MCHC 32.6 g/dL (31.0-37.0); MCV 88.3 fL (80.0-100.0); Mean Platelet Volume 7.7; Monocytes # (A) 0.5 k/uL (0-1.0); Monocytes % (A) 6 %; Neutrophils # (A) 6.5 k/uL (1.3-7.7); Neutrophils % (A) 74 %; Platelet Count 225 k/uL (150-450); RBC 4.65 m/uL (3.80-5.40); RDW 12.5 % (11.5-15.5); WBC 8.7 k/uL (3.8-10.6)
[2021-11-17 20:33] LABS: ALT 27 U/L (4-34); AST 36 U/L (14-36); African American GFR (CKD) >90 (>60 ml/min/1.73 sqM); Albumin 4.2 g/dL (3.5-5.0); Alkaline Phosphatase 95 U/L (38-126); Anion Gap 5 mmol/L; Blood Urea Nitrogen 15 mg/dL (7-17); Carbon Dioxide 30 mmol/L (22-30); Chloride 105 mmol/L (98-107); Glucose 73 mg/dL (74-99); Magnesium 1.9 mg/dL (1.6-2.3); Non-African American GFR(CKD) 82 (>60 ml/min/1.73 sqM); Potassium 4.2 mmol/L (3.5-5.1); Sodium 140 mmol/L (137-145); Total Bilirubin 0.8 mg/dL (0.2-1.3); Total Protein 6.4 g/dL (6.3-8.2)
--- NOTE | 2021-11-17 21:40 | ED ---
General Adult HPI - General Chief complaint: Neuro Symptoms/Deficit Stated complaint: leg numbness Time Seen by Provider: 11/17/21 18:25 Source: patient, EMS Mode of arrival: EMS Limitations: physical limitation - History of Present Illness Initial comments: Maryan is a 61 yo female with PMH of diabetes, diabetic neuropathy, Charcot foot of the left, patient presents the ER today via ambulance for evaluation of leg weakness. Patient reports that every month since February or March of last year she has had episodes the last her for to 5 days where she has leg weakness and just generalized weakness. She states she just wants to know what is causing this. She states her sugars have been well-controlled. She doesn't have any diabetic foot ulcers. She doesn't have any fevers chills nausea or vomiting. She is otherwise feeling well. She states that she just feels like both her legs are weak. She typically uses a walker at home in a cane when she is going out. She states her and now she feels weak even walking with a walker. She's not had any falls. - Related Data Home Medications Medication Instructions Recorded Confirmed Albuterol Sulfate [Proair Hfa] 2 puff INHALATION RT-Q6H PRN 04/10/16 11/17/21 Pregabalin [Lyrica] 100 mg PO BID 02/11/17 11/17/21 buPROPion HCL [Wellbutrin XL] 300 mg PO DAILY 11/26/18 11/17/21 Dulaglutide [Trulicity] 1.5 mg SQ ZAMBRANO 11/27/18 11/17/21 Hydrocodone/Acetaminophen [[place] 1 tab PO Q6H PRN 08/03/19 11/17/21 5-325] buPROPion HCL [Wellbutrin XL] 150 mg PO DAILY 08/03/19 11/17/21 lamoTRIgine [LaMICtal] 150 mg PO BID 08/03/19 11/17/21 Atorvastatin [Lipitor] 40 mg PO HS 02/05/20 11/17/21 Montelukast [Singulair] 10 mg PO HS 02/05/20 11/17/21 Ketoconazole [Ketoconazole 2%] 1 applic TOPICAL BID 09/07/20 11/17/21 SILVER sulfADIAZINE CREAM 1 applic TOPICAL BID 09/07/20 11/17/21 [Silvadene Cream] ARIPiprazole [Abilify] 15 mg PO HS 08/26/21 11/17/21 Diphenoxylate HCl/Atropine 1 tab PO QID PRN 08/26/21 11/17/21 [Lomotil 2.5-0.025 mg Tablet] Insulin Glargine,Hum.rec.anlog 10 unit SQ BID 08/26/21 11/17/21 [Lantus Solostar Pen] Azelastine HCl 2 spray EA NOSTRIL DAILY PRN 11/17/21 11/17/21 Allergies Allergy/AdvReac Type Severity Reaction Status Date / Time blackberry Allergy Rash/Hives Verified 11/17/21 18:49 blueberry Allergy Rash/Hives Verified 11/17/21 18:49 raspberry Allergy Rash/Hives Verified 11/17/21 18:49 strawberry Allergy Rash/Hives Verified 11/17/21 18:49 Review of Systems ROS Statement: Those systems with pertinent positive or pertinent negative responses have been documented in the HPI. ROS Other: All systems not noted in ROS Statement are negative. Past Medical History Past Medical History: Asthma, Diabetes Mellitus, Skin Disorder Additional Past Medical History / Comment(s): on atorvastatin but state cholesterol not elevated History of Any Multi-Drug Resistant Organisms: VRE Date of last positivie culture/infection: 05/30/16 MDRO Source:: left toe Past Surgical History: Orthopedic Surgery Additional Past Surgical History / Comment(s): left foot surgery, left knee arthroplasty Past Anesthesia/Blood Transfusion Reactions: No Reported Reaction Additional Past Anesthesia/Blood Transfusion Reaction / Comment(s): no previous blood transfusion Past Psychological History: Bipolar, Schizophrenia Smoking Status: Never smoker Past Alcohol Use History: None Reported Past Drug Use History: None Reported - Past Family History Mother Family Medical History: Cancer Additional Family Medical History / Comment(s): breast Sister(s) Family Medical History: Cancer Additional Family Medical History / Comment(s): kidney and liver General Exam - General Exam Comments Initial Comments: Physical Exam GENERAL: Patient is well-developed and well-nourished. Patient is nontoxic and well-hydrated and is in no distress. HENT: Normocephalic, Atraumatic EYES: PERRL, EOMI PULMONARY: Unlabored respirations. CARDIOVASCULAR: RRR Warm and well perfused extremities ABDOMEN: Non-distended SKIN: Well healing diabetic ulcer left foot, no signs of infection Callus on right mid foot, no signs of infection skin is dry, no wounds : Deferred NEUROLOGIC: Alert and oriented Normal speech Able to lift legs off bed for 10 seconds, no objective weakness MUSCULOSKELETAL: Charcot foot left PSYCHIATRIC: No SI/HI Limitations: physical limitation Course Vital Signs 11/17/21 18:15 Temperature 98.6 F Pulse Rate 75 Respiratory 18 Rate Blood Pressure 157/91 O2 Sat by Pulse 97 Oximetry Medical Decision Making - Medical Decision Making The patient was seen and evaluated, patient complaining of generalized weakness and difficulty in walking states that this happens to her for about a week every month for the past 8-10 months. She is not dissipated physical therapy. She reports her diabetes is well-controlled her infections are under control. Labs are obtained and are unremarkable sugar was somewhat low at 73 but she was eating in the department. Patient has normal strength in her lower extremities, she doesn't have any headache vision changes or dizziness. This is a chronic problem has recurrent episodes. Recommend patient follow with her primary care physician to discuss home physical therapy, patient is agreeable. [facility] can take her home. - Lab Data Result diagrams: 11/17/21 19:40 11/17/21 19:40 Lab Results 11/17/21 11/17/21 11/17/21 Range/Units 19:40 19:40 19:40 WBC 8.7 (3.8-10.6) k/uL RBC 4.65 (3.80-5.40) m/uL Hgb 13.4 (11.4-16.0) gm/dL Hct 41.1 (34.0-46.0) % MCV 88.3 (80.0-100.0) fL MCH 28.8 (25.0-35.0) pg MCHC 32.6 (31.0-37.0) g/dL RDW 12.5 (11.5-15.5) % Plt Count 225 (150-450) k/uL MPV 7.7 Neutrophils % 74 % Lymphocytes % 17 % Monocytes % 6 % Eosinophils % 1 % Basophils % 0 % Neutrophils # 6.5 (1.3-7.7) k/uL Lymphocytes # 1.5 (1.0-4.8) k/uL Monocytes # 0.5 (0-1.0) k/uL Eosinophils # 0.1 (0-0.7) k/uL Basophils # 0.0 (0-0.2) k/uL Sodium 140 (137-145) mmol/L Potassium 4.2 (3.5-5.1) mmol/L Chloride 105 (98-107) mmol/L Carbon Dioxide 30 (22-30) mmol/L Anion Gap 5 mmol/L BUN 15 (7-17) mg/dL Creatinine 0.79 (0.52-1.04) mg/dL Est GFR (CKD-EPI)AfAm >90 (>60 ml/min/1.73 sqM) Est GFR (CKD-EPI)NonAf 82 (>60 ml/min/1.73 sqM) Glucose 73 L (74-99) mg/dL Calcium 10.0 (8.4-10.2) mg/dL Magnesium 1.9 (1.6-2.3) mg/dL Total Bilirubin 0.8 (0.2-1.3) mg/dL AST 36 (14-36) U/L ALT 27 (4-34) U/L Alkaline Phosphatase 95 (38-126) U/L Total Protein 6.4 (6.3-8.2) g/dL Albumin 4.2 (3.5-5.0) g/dL TSH 0.660 (0.465-4.680) mIU/L Urine Color Light Yellow Urine Appearance Clear (Clear) Urine pH 7.5 (5.0-8.0) Ur Specific [place] 1.011 (1.001-1.035) Urine Protein Negative (Negative) Urine Glucose (UA) Negative (Negative) Urine Ketones Negative (Negative) Urine Blood Negative (Negative) Urine Nitrite Negative (Negative) Urine Bilirubin Negative (Negative) Urine Urobilinogen <2.0 (<2.0) mg/dL Ur Leukocyte Esterase Negative (Negative) Disposition Clinical Impression: Generalized weakness Disposition: HOME SELF-CARE Condition: Stable Additional Instructions: Follow up primary care physician, discuss possible Physical Therapy Return to the ER for any worsening Is patient prescribed a controlled substance at d/c from ED?: No Referrals: Fredrick Bradley MD [Primary Care Provider] - 1-2 days
[2021-11-17 21:52] LABS: Appearance,Urine Clear (Clear); Bilirubin,Urine Negative (Negative); Blood,Urine Negative (Negative); Color,Urine Light Yellow; Glucose,Urine (UA) Negative (Negative); Ketones,Urine Negative (Negative); Leukocyte Esterase,Urine Negative (Negative); Nitrite,Urine Negative (Negative); PH, Urine 7.5 (5.0-8.0); Protein,Urine Negative (Negative); Specific Gravity,Urine 1.011 (1.001-1.035); Urobilinogen,Urine <2.0 mg/dL (<2.0)
[2021-11-18 00:06] VITALS: BP 156/84; PULSE 84
== END 2021-11-18 00:06 | disposition home or self-care (01) ==
LOC: EC 18:09
DX: R53.1 Weakness (principal); J45.909 Unspecified asthma, uncomplicated; E11.9 Type 2 diabetes mellitus without complications; F31.9 Bipolar disorder, unspecified; F20.9 Schizophrenia, unspecified; Z79.51 Long term (current) use of inhaled steroids; Z79.4 Long term (current) use of insulin
CPT/HCPCS: 36415; 80053; 81003; 83735; 84443; 85025; 96360; 99284

== ENCOUNTER → 2022-04-17 | Outpatient (CLI) | payer MEDICARE, OTHER ==
--- NOTE | 2022-04-17 23:58 | US ---
EXAMINATION TYPE: US thyroid st tissue head/neck DATE OF EXAM: 04/17/2022 COMPARISON: Ultrasound dated 03/30/2021 CLINICAL HISTORY: E04.2 Multiple thyroid nodules. F/U nodules GLAND SIZE: Right Lobe: 4.7 x 1.7 x 1.8 cm Overall Parenchyma: homogenous Left Lobe: 4.6 x 1.7 x 2.1 cm Overall Parenchyma: homogeneous Isthmus Thickness: 0.4 cm NODULES RIGHT: # of nodules measured on right: 1 1. 0.8 X 0.5 x 0.9 cm, lower, mixed cystic and solid, hypoechoic nodule, which is wider than tall, with smooth margins, without echogenic foci. Prior size: 1.0 x 0.4 x 0.9 cm Multiple sub-centimeter nodules scattered throughout lobe, largest measured similar to prior LEFT: # of nodules measured on left: 1 1. 0.7 X 0.5 x 0.7 cm, mid mid, mixed cystic and solid, hypoechoic nodule, which is wider than tall , with smooth margins, without echogenic foci. Prior size: 0.8 x 0.5 x 0.7 cm Multiple sub-centimeter nodules scattered throughout lobe, largest measured similar to prior ISTHMUS: # of nodules measured in the isthmus: 1 1. 1.2 X 0.6 x 1.2 cm solid or almost completely solid, hypoechoic nodule, which is wider than tall , with smooth margins, without echogenic foci. Prior size: 1.2 x 0.6 x 1.0 cm Bilateral neck scanned, no evidence of lymphadenopathy. Stable nodules bilaterally as measured on jesenia or. IMPRESSION: Multiple thyroid nodules and colloid cysts with stable dominant nodules as detailed above.
== END ==
LOC: CPPFTMAIN 10:58
PROVIDERS: ATTEND Family Medicine
DX: E04.2 Nontoxic multinodular goiter (principal); J45.40 Moderate persistent asthma, uncomplicated; Z91.018 Allergy to other foods
CPT/HCPCS: 76536; 94060; 94726; 94729

== ENCOUNTER → 2024-08-31 | Outpatient (CLI) | payer MEDICARE, OTHER | END | disposition home or self-care (01) | LOC: LABWHC1 11:53 | PROVIDERS: ATTEND Internal Medicine | DX: E11.65 Type 2 diabetes mellitus with hyperglycemia (principal) | CPT/HCPCS: 36415; 83036 ==

== ENCOUNTER 2024-11-12 10:14 | Emergency (ER) | payer MEDICARE, OTHER ==
[2024-11-12 10:23] VITALS: TEMP 97.4
[2024-11-12 10:47] LABS: Basophils % (A) 0 %; Eosinophils # (A) 0.1 k/uL (0-0.7); Eosinophils % (A) 1 %; HCT 43.3 % (34.0-46.0); Lymphocytes # (A) 1.3 k/uL (1.0-4.8); Lymphocytes % (A) 15 %; MCH 27.7 pg (25.0-35.0); MCHC 32.5 g/dL (31.0-37.0); MCV 85.5 fL (80.0-100.0); Mean Platelet Volume 7.7; Monocytes # (A) 0.6 k/uL (0-1.0); Monocytes % (A) 6 %; Neutrophils # (A) 6.8 k/uL (1.3-7.7); Neutrophils % (A) 76 %; Platelet Count 221 k/uL (150-450); RBC 5.06 m/uL (3.80-5.40); RDW 12.7 % (11.5-15.5)
[2024-11-12] MEDS: SODIUM CHLORIDE 0.9% 1,000 ML IV STA (10:47)
[2024-11-12] MEDS: MORPHINE SULFATE 4 MG/ML SYRINGE IVP STA (10:47)
--- NOTE | 2024-11-12 10:52 | ED ---
Fall HPI - General Chief Complaint: Fall Stated Complaint: Fall Time Seen by Provider: 11/12/24 10:22 Source: patient, EMS, RN notes reviewed Mode of arrival: EMS Limitations: no limitations - History of Present Illness Initial Comments: This is a 64-year-old female who presents to the emergency department for a fall. Patient tripped over her leg brace in her apartment last evening and fell. Believes this was about 1:30 PM and she has been on the floor since. The correctional maintenance technician in her building found her this morning. She did hit her head and believes that she may have temporarily lost consciousness. Not taking any blood thinners. Currently complains of pain over the left hip and left rib cage. MD Complaint: fall - Related Data Home Medications Medication Instructions Recorded Confirmed buPROPion HCL [Wellbutrin XL] 300 mg PO DAILY 11/26/18 11/12/24 buPROPion HCL [Wellbutrin XL] 150 mg PO DAILY 08/03/19 11/12/24 lamoTRIgine [LaMICtal] 150 mg PO BID 08/03/19 11/12/24 Atorvastatin [Lipitor] 40 mg PO HS 02/05/20 11/12/24 Montelukast [Singulair] 10 mg PO HS 02/05/20 11/12/24 Ketoconazole [Ketoconazole 2%] 1 applic TOPICAL BID 09/07/20 11/12/24 Insulin Glargine,Hum.rec.anlog 15 unit SQ HS 08/26/21 11/12/24 [Lantus Solostar Pen] ARIPiprazole [Abilify] 30 mg PO HS 11/12/24 11/12/24 Pioglitazone [Actos] 15 mg PO DAILY 11/12/24 11/12/24 Sertraline [Zoloft] 100 mg PO BID 11/12/24 11/12/24 Tirzepatide [Mounjaro] 5 mg SQ WEEKLY 11/12/24 11/12/24 Allergies Allergy/AdvReac Type Severity Reaction Status Date / Time blackberry Allergy Rash/Hives Verified 11/12/24 12:25 blueberry Allergy Rash/Hives Verified 11/12/24 12:25 raspberry Allergy Rash/Hives Verified 11/12/24 12:25 strawberry Allergy Rash/Hives Verified 01/02/25 12:25 Review of Systems ROS Statement: Those systems with pertinent positive or pertinent negative responses have been documented in the HPI. ROS Other: All systems not noted in ROS Statement are negative. Past Medical History Past Medical History: Asthma, Diabetes Mellitus, Skin Disorder Additional Past Medical History / Comment(s): on atorvastatin but state cholesterol not elevated, wears metal brace on left leg 03/06 History of Any Multi-Drug Resistant Organisms: VRE Date of last positivie culture/infection: 05/30/16 MDRO Source:: left toe Past Surgical History: Orthopedic Surgery Additional Past Surgical History / Comment(s): left foot surgery, left knee arthroplasty Past Anesthesia/Blood Transfusion Reactions: No Reported Reaction Additional Past Anesthesia/Blood Transfusion Reaction / Comment(s): no previous blood transfusion Past Psychological History: Bipolar, Schizophrenia Smoking Status: Never smoker Past Alcohol Use History: None Reported Past Drug Use History: None Reported - Past Family History Mother Family Medical History: Cancer Additional Family Medical History / Comment(s): breast Sister(s) Family Medical History: Cancer Additional Family Medical History / Comment(s): kidney and liver General Exam Limitations: no limitations General appearance: alert, in no apparent distress Head exam: Present: atraumatic, normocephalic, normal inspection Eye exam: Present: normal appearance, PERRL, EOMI. Absent: scleral icterus, conjunctival injection, periorbital swelling Respiratory exam: Present: normal lung sounds bilaterally. Absent: respiratory distress, wheezes, rales, rhonchi, stridor Cardiovascular Exam: Present: regular rate, normal rhythm, normal heart sounds. Absent: systolic murmur, diastolic murmur, rubs, gallop, clicks GI/Abdominal exam: Present: soft, normal bowel sounds. Absent: distended, tenderness, guarding, rebound, rigid Extremities exam: Present: other (Tenderness to palpation of the left hip. Full range of motion. 2+ DP and PT pulses) Neurological exam: Present: alert, oriented X3, CN II-XII intact Psychiatric exam: Present: normal affect, normal mood Skin exam: Present: warm, dry, intact, normal color. Absent: rash Course Vital Signs 11/12/24 11/12/24 11/12/24 10:18 10:49 14:29 Temperature 97.4 F L Pulse Rate 80 85 84 Respiratory 18 18 16 Rate Blood Pressure 130/90 132/74 136/75 O2 Sat by Pulse 96 89 L 94 L Oximetry 11/12/24 15:57 Temperature 97.4 F L Pulse Rate 80 Respiratory 16 Rate Blood Pressure 104/67 O2 Sat by Pulse 93 L Oximetry Medical Decision Making - Medical Decision Making This is a 64-year-old female who presents to the emergency department for a fall and left hip pain. Was pt. sent in by a medical professional or institution? @ -No Did you speak to anyone other than the patient for history? @ -No Did you review nursing and triage notes? @ -Yes, and I agree, it is accurate with regards to the patient's symptoms. Were old charts reviewed? @ -No Differential Diagnosis? @ -Differential Musculoskeletal Muscular strain, contusion, ligament sprain, fracture, arthritis, septic arthritis, bursitis, cellulitis, muscle spasm, nerve compression, DVT, arterial occlusion, herpes zoster, electrolyte abnormality, tumor.... This is not meant to be in all inclusive list EKG interpreted by me (3pts min.)? @ -EKG interpreted by me demonstrating the following: Sinus rhythm. Ventricular rate 84 bpm, MD interval 180 ms, QRS duration 110 ms, QTc 449 ms. X-rays interpreted by me (1pt min.)? @ -X-ray of the left rib cage and PA chest obtained. My interpretation identifies no acute rib fractures. X-ray of the left hip and AP pelvis obtained. My interpretation identifies no acute fractures. CT interpreted by me (1pt min.)? @ -Computed tomography scan of the brain and c-spine obtained. My inter pretation identifies no evidence of an acute intracranial hemorrhage, skull fracture, or cervical spine fracture. CT scan of the pelvis obtained. My interpretation identifies no acute fractures. U/S interpreted by me (1pt. min.)? @ -Not obtained What testing was considered but not performed? (CT, X-rays, U/S, labs)? Why? @ -None What meds were considered but not given? Why? @ -None Did you discuss the management of the patient with other professionals? @ -No Did you reconcile home meds? @ -No Was smoking cessation discussed for >3mins.? @ -No Was critical care preformed (if so, how long)? @ -No Were there social determinants of health that impacted care today? How? (Homelessness, low income, unemployed, alcoholism, drug addiction, transportation, low edu. Level, literacy, decrease access to med. care, snf, rehab)? @ -No Was there de-escalation of care discussed even if they declined? (Discuss DNR or withdrawal of care, Hospice)? @ -No What co-morbidities impacted this encounter? (DM, HTN, Smoking, COPD, CAD, Cancer, CVA, Hep., AIDS, mental health diagnosis, sleep apnea, morbid obesity)? @ -DM Was patient admitted / discharged? @ -Discharged. Lab work demonstrates a mildly elevated CK of 196 and was otherwise unremarkable. Urinalysis negative for signs of infection. CT scan of the brain and C-spine obtained revealing no acute process. We first obtained an x-ray of the chest and left hip. No acute findings were identified. However, when we went to stand the patient up she states that she still had a lot of pain over the left hip. We subsequently proceeded with a CT scan of the pelvis. Again no acute fractures were identified. We were able to get her pain to a manageable level and she was able to ambulate afterwards. Patient discharged home via wheelchair van in stable condition. Case discussed with ED attending Dr. Bernal. Return precautions reviewed in depth, the patient is instructed to return to the emergency department with any new, worsening, or concerning symptoms. Patient verbalized understanding. Undiagnosed new problem with uncertain prognosis? @ -None Drug Therapy requiring intensive monitoring for toxicity (Heparin, Nitro, Insulin, Cardizem)? @ -None Were any procedures done? @ -None Diagnosis/symptom? @ -Fall, left hip pain Acute, or Chronic, or Acute on Chronic? @ -Acute Uncomplicated (without systemic symptoms) or Complicated (systemic symptoms)? @ -Uncomplicated Side effects of treatment? @ -None Exacerbation, Progression, or Severe Exacerbation] @ -Not applicable Poses a threat to life or bodily function? @ -No - Lab Data Result diagrams: 11/12/24 10:31 11/12/24 10:31 Lab Results 11/12/24 11/12/24 11/12/24 Range/Units 10:31 10: 10: WBC 9.0 (3.8-10.6) k/uL RBC 5.06 (3.80-5.40) m/uL Hgb 14.0 (11.4-16.0) gm/dL Hct 43.3 (34.0-46.0) % MCV 85.5 (80.0-100.0) fL MCH 27.7 (25.0-35.0) pg MCHC 32.5 (31.0-37.0) g/dL RDW 12.7 (11.5-15.5) % Plt Count 221 (150-450) k/uL MPV 7.7 Neutrophils % 76 % Lymphocytes % 15 % Monocytes % 6 % Eosinophils % 1 % Basophils % 0 % Neutrophils # 6.8 (1.3-7.7) k/uL Lymphocytes # 1.3 (1.0-4.8) k/uL Monocytes # 0.6 (0-1.0) k/uL Eosinophils # 0.1 (0-0.7) k/uL Basophils # 0.0 (0-0.2) k/uL PT 11.2 (10.0-12.5) sec INR 1.0 (<1.2) APTT 23.6 (22.0-30.0) sec Sodium 140 (137-145) mmol/L Potassium 3.9 (3.5-5.1) mmol/L Chloride 104 (98-107) mmol/L Carbon Dioxide 30 (22-30) mmol/L Anion Gap 6 mmol/L BUN 16 (7-17) mg/dL Creatinine 0.80 (0.52-1.04) mg/dL Est GFR (CKD-EPI)AfAm >90 (>60 ml/min/1.73 sqM) Est GFR (CKD-EPI)NonAf 79 (>60 ml/min/1.73 sqM) Glucose 74 (74-99) mg/dL Plasma Lactic Acid James (0.7-2.0) mmol/L Calcium 9.5 (8.4-10.2) mg/dL Total Bilirubin 0.7 (0.2-1.3) mg/dL AST 31 (14-36) U/L ALT 21 (4-34) U/L Alkaline Phosphatase 129 H (38-126) U/L Creatine Kinase 196 H (30-135) U/L Total Protein 6.5 (6.3-8.2) g/dL Albumin 4.4 (3.5-5.0) g/dL Urine Color Urine Appearance (Clear) Urine pH (5.0-8.0) Ur Specific [place] (1.001-1.035) Urine Protein (Negative) Urine Glucose (UA) (Negative) Urine Ketones (Negative) Urine Blood (Negative) Urine Nitrite (Negative) Urine Bilirubin (Negative) Urine Urobilinogen (<2.0) mg/dL Ur Leukocyte Esterase (Negative) Urine RBC (0-5) /hpf Urine WBC (0-5) /hpf Ur Squamous Epith Cells (0-4) /hpf Urine Bacteria (None) /hpf Urine Mucus (None) /hpf 11/12/24 11/12/24 Range/Units 10:34 13:21 WBC (3.8-10.6) k/uL RBC (3.80-5.40) m/uL Hgb (11.4-16.0) gm/dL Hct (34.0-46.0) % MCV (80.0-100.0) fL MCH (25.0-35.0) pg MCHC (31.0-37.0) g/dL RDW (11.5-15.5) % Plt Count (150-450) k/uL MPV Neutrophils % % Lymphocytes % % Monocytes % % Eosinophils % % Basophils % % Neutrophils # (1.3-7.7) k/uL Lymphocytes # (1.0-4.8) k/uL Monocytes # (0-1.0) k/uL Eosinophils # (0-0.7) k/uL Basophils # (0-0.2) k/uL PT (10.0-12.5) sec INR (<1.2) APTT (22.0-30.0) sec Sodium (137-145) mmol/L Potassium (3.5-5.1) mmol/L Chloride (98-107) mmol/L Carbon Dioxide (22-30) mmol/L Anion Gap mmol/L BUN (7-17) mg/dL Creatinine (0.52-1.04) mg/dL Est GFR (CKD-EPI)AfAm (>60 ml/min/1.73 sqM) Est GFR (CKD-EPI)NonAf (>60 ml/min/1.73 sqM) Glucose (74-99) mg/dL Plasma Lactic Acid James 1.5 (0.7-2.0) mmol/L Calcium (8.4-10.2) mg/dL Total Bilirubin (0.2-1.3) mg/dL AST (14-36) U/L ALT (4-34) U/L Alkaline Phosphatase (38-126) U/L Creatine Kinase (30-135) U/L Total Protein (6.3-8.2) g/dL Albumin (3.5-5.0) g/dL Urine Color Colorless Urine Appearance Clear (Clear) Urine pH 6.5 (5.0-8.0) Ur Specific [place] 1.010 (1.001-1.035) Urine Protein Negative (Negative) Urine Glucose (UA) Negative (Negative) Urine Ketones 1+ H (Negative) Urine Blood Negative (Negative) Urine Nitrite Negative (Negative) Urine Bilirubin Negative (Negative) Urine Urobilinogen <2.0 (<2.0) mg/dL Ur Leukocyte Esterase Small H (Negative) Urine RBC 2 (0-5) /hpf Urine WBC 5 (0-5) /hpf Ur Squamous Epith Cells 1 (0-4) /hpf Urine Bacteria Rare H (None) /hpf Urine Mucus Rare H (None) /hpf - Radiology Data Radiology results: report reviewed, image reviewed Disposition Clinical Impression: Fall, Left hip pain Disposition: HOME SELF-CARE Instructions (If sedation given, give patient instructions): Fall Prevention for Older Adults (ED) Additional Instructions: Return to the emergency department with any new, worsening, or concerning symptoms. Alternate with ibuprofen and Tylenol as needed for pain relief. Follow up with your primary care provider in 1-2 days. Is patient prescribed a controlled substance at d/c from ED?: No Referrals: None,Stated [Primary Care Provider] - 1-2 days Time of Disposition: 15:17
[2024-11-12 10:56] LABS: ALT 21 U/L (4-34); AST 31 U/L (14-36); African American GFR (CKD) >90 (>60 ml/min/1.73 sqM); Albumin 4.4 g/dL (3.5-5.0); Alkaline Phosphatase 129 U/L (38-126); Anion Gap 6 mmol/L; Blood Urea Nitrogen 16 mg/dL (7-17); Calcium 9.5 mg/dL (8.4-10.2); Carbon Dioxide 30 mmol/L (22-30); Chloride 104 mmol/L (98-107); Creatine Kinase 196 U/L (30-135); Glucose 74 mg/dL (74-99); Non-African American GFR(CKD) 79 (>60 ml/min/1.73 sqM); Potassium 3.9 mmol/L (3.5-5.1); Sodium 140 mmol/L (137-145); Total Bilirubin 0.7 mg/dL (0.2-1.3); Total Protein 6.5 g/dL (6.3-8.2)
[2024-11-12 11:49] LABS: Partial Thromboplastin Time 23.6 sec (22.0-30.0); Prothrombin Time 11.2 sec (10.0-12.5)
--- NOTE | 2024-11-12 12:19 | CT ---
EXAMINATION TYPE: CT brain marizol wo con DATE OF EXAM: 11/12/2024 COMPARISON: CT brain dated 09/07/2020 CLINICAL INDICATION: Female, 64 years old with history of Fall; PHH, fall, ams TECHNIQUE: CT scan of the head and cervical spine are performed without contrast. CT DLP: 1447.[address] CTDI: mGy Automated exposure control for dose reduction was used. Findings: Head CT: Ventricles, basal cisterns and sulci over convexities within normal limits and there is no mass, mass effect or shift of midline structures. No abnormal density is seen throughout the brain parenchyma and there is no acute intra or extra-axia l hemorrhage. Posterior fossa including the brainstem, fourth ventricle and cerebellar pontine angles are grossly n ormal. The intraorbital contents appear normal and symmetric. There is marked chronic inflammatory change in the right maxillary sinus. Remaining paranasal sinuses and mastoid air cells are well aerated. The calvarium is intact. CT cervical spine: Craniovertebral junction relationships and prevertebral soft tissues are normal. The cervical vertebral segments are normal in height and alignment and there is no fracture subluxati on. There is moderate to marked disc space narrowing and spondylosis at the C4-5 and C5-6 levels indicati ng moderate to marked degenerative disc disease. There is marked degeneration of the vertebral joints at C4-5 and C5-6 levels. The bony cervical canal is widely patent. Moderate bony neural foraminal encroachment at C4-5 on the right, severe bony neural foraminal encroa chment C5-6 on the right and mild to moderate bony neural foraminal encroachment C5-6 on the left. The paraspinal soft tissues unremarkable. IMPRESSION: 1. Head CT: No acute bleed or mass effect. 2. CT cervical spine: No acute trauma. Advanced degenerative changes in the lower cervical spine at C 4-5 and C5-6 as described above. [facility], , 11/12/2024 12:17 PM
--- NOTE | 2024-11-12 13:05 | XR ---
EXAMINATION TYPE: XR Hip LT and AP Pelvis DATE OF EXAM: 11/12/2024 12:52 PM INDICATION: Patient age:Female; 64 years old; Reason for study: Fall; PHH. pain COMPARISON: Lumbar spine radiograph 09/07/2020 TECHNIQUE: The left hip was examined in the frontal and lateral projections and a AP pelvis. FINDINGS: No evidence of any acute osseous pathology, joint dislocation, or soft tissue swelling. Tub al ligation clips within the right pelvis with additional one within the high left pelvis. Multilevel degenerative changes of the lumbar spine. Mild osteophytic changes of both hips with medial joint sp chris narrowing and acetabular sclerosis. IMPRESSION: No acute osseous pathology. [facility], , 11/12/2024 1:02 PM
--- NOTE | 2024-11-12 13:07 | XR ---
EXAMINATION TYPE: XR ribs LT w pa chest xray DATE OF EXAM: 11/12/2024 12:53 PM INDICATION: Patient age:Female; 64 years old; Reason for study: Fall; PHH. pain COMPARISON: Chest radiograph 06/29/2013 TECHNIQUE: Frontal and oblique views of the left ribs with additional PA chest radiograph. FINDINGS: The ribs have a normal appearance. No evidence of fracture. Overall, the lungs are clear. The cardiac silhouette is normal in size. The remaining osseous structures are intact. Advanced ost eoarthritic changes of the right shoulder. IMPRESSION: No acute osseous pathology. [facility], , 11/12/2024 1:05 PM
[2024-11-12 13:33] LABS: Appearance,Urine Clear (Clear); Bacteria,Urine Rare /hpf; Bilirubin,Urine Negative (Negative); Blood,Urine Negative (Negative); Color,Urine Colorless; Glucose,Urine (UA) Negative (Negative); Ketones,Urine 1+ (Negative); Leukocyte Esterase,Urine Small (Negative); Mucus,Urine Rare /hpf; Nitrite,Urine Negative (Negative); PH, Urine 6.5 (5.0-8.0); Protein,Urine Negative (Negative); RBC,Urine 2 /hpf (0-5); Squamous Epithelial Cell,Urine 1 /hpf (0-4); Urobilinogen,Urine <2.0 mg/dL (<2.0); WBC,Urine 5 /hpf (0-5)
--- NOTE | 2024-11-12 14:18 | CT ---
EXAMINATION TYPE: CT pelvis wo con CT DLP: 563.9 mGycm, Automated exposure control for dose reduction was used. DATE OF EXAM: 11/12/2024 2:11 PM COMPARISON: Left hip and pelvic radiograph 11/12/2024 CLINICAL INDICATION:Female, 64 years old with history of Left hip pain, negative x-ray; Left hip pain , negative x-ray TECHNIQUE: Standard CT of the pelvis without IV or oral contrast. Lack of IV or oral contrast limit s evaluation of solid and hollow organ viscera. Coronal and sagittal reformats were performed. 3-D re formats of the pelvic osseous structures are separate workstation. FINDINGS: BLADDER: Unremarkable noncontrast appearance. Moderately distended. REPRODUCTIVE: Unremarkable noncontrast appearance. Tubal ligation clip is identified within the poste rior right pelvis. Additional tubal ligation clip identified within the left upper pelvis. BOWEL: No focal bowel wall thickening or stranding inflammatory changes. The visualized appendix is u nremarkable. No evidence of bowel obstruction. PERITONEUM: No evidence of pneumoperitoneum or free fluid. VASCULATURE: No evidence of aortic aneurysm. MUSCULOSKELETAL: No acute osseous abnormalities. Advanced degenerative disc disease at L4-L5 with fac et arthropathy. Subchondral cystic changes involving the left sacral ala. Mild osteoarthritic changes both hips with medial joint space narrowing and acetabular sclerosis. LYMPH NODES: No gross evidence for lymphadenopathy. SOFT TISSUE/ABDOMINAL WALL: Small fat filled umbilical hernia. IMPRESSION: No acute pelvic fracture. [facility], , 11/12/2024 2:16 PM
[2024-11-12 14:32] VITALS: RESP 16
[2024-11-12] MEDS: KETOROLAC 15 MG/ML 1 ML VIAL IVP STA (14:33)
[2024-11-12] MEDS: HYDROmorphone 1 MG/ML 1 ML SYRINGE IVP STA (14:35)
[2024-11-12] MEDS: ACET/COD 300 MG/30 MG STARTER PACK 6 TAB BTL PO STA (15:43)
[2024-11-12 16:00] VITALS: BP 104/67; PULSE 80
== END 2024-11-12 16:01 | disposition home or self-care (01) ==
LOC: EC 10:14
DX: M25.552 Pain in left hip (principal); R07.81 Pleurodynia; E11.9 Type 2 diabetes mellitus without complications; Z91.018 Allergy to other foods; W01.0XXA Fall on same level from slipping, tripping and stumbling without subsequent striking against object, initial encounter
CPT/HCPCS: 36415; 93005; 80053; 82550; 83605; 85025; 85610; 85730; 81001; 71101; 73502; 72192; 72125; 70450; 99285; 96374; 96375 ×2; 96361; J2270; J1171; J1885

== ENCOUNTER → 2024-11-27 | Outpatient (CLI) | payer MEDICARE, OTHER | END | disposition home or self-care (01) | LOC: LABWHC1 10:16 | PROVIDERS: ATTEND Internal Medicine | DX: E11.65 Type 2 diabetes mellitus with hyperglycemia (principal) | CPT/HCPCS: 36415; 83036 ==

== ENCOUNTER → 2024-11-27 | Outpatient (CLI) | payer MEDICARE, OTHER ==
--- NOTE | 2024-11-27 11:16 | XR ---
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 FINDINGS/IMPRESSION: Extensive postsurgical change through the foot with pes planus. Hardware fractures are seen at least 3 of the screws. No evidence for acute fracture. Severe degeneration changes of the midfoot in the ar ea of fixation. [facility], , 11/27/2024 11:14 AM
== END | disposition home or self-care (01) ==
LOC: RADXRMAIN 10:21
PROVIDERS: ATTEND Podiatrist
DX: M14.672 Charcot's joint, left ankle and foot (principal)

== ENCOUNTER → 2025-06-07 | Outpatient (CLI) | payer MEDICARE, OTHER ==
--- NOTE | 2025-06-07 15:30 | US ---
EXAMINATION TYPE: US kidneys/renal and bladder DATE OF EXAM: 06/07/2025 COMPARISON: NONE CLINICAL INDICATION: Female, 64 years old with history of R94.4 ABN RENAL FUNCTION TEST; TECHNIQUE: Grayscale imaging of the bilateral kidneys and urinary bladder: FINDINGS: EXAM MEASUREMENTS: Right Kidney: 10.2 x 5.5 x 4.3 cm Left Kidney: 9.7 x 4.8 x 3.9 cm Right Kidney: limited by rib shadowing and overlying bowel gas, visualized portions wnl Left Kidney: limited by rib shadowing and overlying bowel gas, visualized portions wnl Bladder: not fully distended No hydronephrosis. Visualized portions demonstrate no evidence for shadowing renal calculi or solid m ass. Corticomedullary differentiation is maintained bilaterally. No significant cortical thinning. Ur inary bladder is underdistended which limits evaluation. IMPRESSION: No evidence for obstructive uropathy. [facility], , 06/07/2025 3:28 PM
--- NOTE | 2025-06-07 18:12 | MM ---
Reason for Exam: Screening (asymptomatic). Last mammogram was performed 3 year(s) and 11 month(s) ago. Patient History: Menarche at age 12. Patient has no children. Postmenopausal. Mother had breast cancer, age 40. Risk Values: Rbeeca 5 year model risk: 2.5%. NCI Lifetime model risk: 10.0%. Prior Study Comparison: 11/27/2018 Bilateral Screening Mammogram, [facility]. 01/11/2020 Bilateral Screening Mammogram, [facility]. 06/27/2021 Bilateral Screening Mammogram, [facility]. Tissue Density: There are scattered areas of fibroglandular density. Findings: Analyzed By CAD. There is no suspicious group of microcalcifications or new suspicious mass in either breast. Overall Assessment: Negative, BI-RAD 1 Management: Screening Mammogram of both breasts in 1 year. See note below in regards to the patient's increased 5 year Rebeca score. Patient should continue monthly self-breast exams. A clinical breast exam by your physician is recommended on an annual basis. This exam should not preclude additional follow-up of suspicious palpable abnormalities. Note on Rebeca scores and lifetime risk: 1. A Rebeca score greater than 3% is considered moderate risk. If this is the case, consider specialist referral to assess eligibility for a risk reducing agent. 2. If overall lifetime risk for the development of breast cancer is 20% or higher, the patient may qualify for future screening with alternating mammogram and breast MRI. [facility], , 06/07/2025 6:09 PM. Electronically signed and approved by: Annita Watters M.D. Radiologist
== END | disposition home or self-care (01) ==
LOC: RADMAMWWP 14:20
PROVIDERS: ATTEND Family Medicine
DX: Z12.31 Encounter for screening mammogram for malignant neoplasm of breast (principal); R94.4 Abnormal results of kidney function studies; R92.323 Mammographic fibroglandular density, bilateral breasts; Z78.0 Asymptomatic menopausal state; Z80.3 Family history of malignant neoplasm of breast
CPT/HCPCS: 76770; 77063; 77067